=== PATIENT | female | born 1955 | race African-American/Black ===

== ENCOUNTER 2020-10-12 19:45 | Observation (INO) | payer OTHER ==
[2020-10-12 20:32] LABS: Absolute Lymphocytes (CBC) 1.1 K/uL (0.7-4.9); Basophils % 0.4 % (0-1.3); Lymphocytes % 14.1 % (15.3-44.8); RBC Red Blood Cell Count 4.96 M/uL (3.86-4.86)
[2020-10-12] MEDS ORDERED: NA CHLORIDE 0.9% 1,000 ML ONE ×2 (20:44→21:52)
[2020-10-12] MEDS ORDERED: ONDANSETRON 4 MG/2 ML VIAL ONE (20:44)
[2020-10-12 21:12] LABS: Bilirubin Direct 0.1 mg/dL (0-0.2); Bilirubin Total 0.5 mg/dL (0.2-1.0); Protein, Total 8.6 g/dL (6.4-8.2)
[2020-10-12 21:13] LABS: Potassium 6.2 mmol/L (3.5-5.1)
[2020-10-12 21:50] LABS: Magnesium 2.5 mg/dL (1.8-2.4); Phosphorus 8.3 mg/dL (2.5-4.9)
[2020-10-12] MEDS ORDERED: NA CHLORIDE 0.9% 100 ML ONE (21:52)
[2020-10-12] MEDS ORDERED: INSULIN -REGULAR HUMAN 50 UNIT/0.5 ML ML ONE (21:52)
[2020-10-12 22:01] LABS: Arterial Blood Carboxyhemoglob 1.2 % (0-1.5); Blood Gas Oxyhemoglobin 93.1 % (94-97); Blood O2 Saturation 95.8 % (92-98.5)
[2020-10-12 22:03] LABS: Urine Blood 1+ (NEG); Urine Glucose 2+ (NEG); Urine Protein NEGATIVE (NEG); Urine Specific Gravity 1.015 (1.005-1.030); Urine pH 5.5 (5.0-7.0)
--- NOTE | 2020-10-12 22:16 | ER ---
Nurse's Notes [facility] Name: Ana Laura Davis Age: 65 yrs Sex: Female : 1955 Arrival Date: 10/12/2020 Time: 19:48 Bed 13 Private MD: Donald Escobar B Diagnosis: Diabetes mellitus due to underlying condition with ketoacidosis Presentation: 10/12 19:52 Chief complaint: Patient states: Bllod sugar read HI just [employer]POR[employer]. Has been elavated for a ll1 few days. N/V began yesterday. Coronavirus screen: Client denies travel out of the [place] in the last 14 days. At this time, the client does not indicate any symptoms associated with coronavirus-19. Ebola Screen: Patient denies travel to an Ebola-affected area in the 21 days before illness onset. Initial Sepsis Screen: Does the patient meet any 2 criteria? HR > 90 bpm. No. Patient's initial sepsis screen is negative. Does the patient have a suspected source of infection? Yes: Other: high blood sugar. Risk Assessment: Do you want to hurt yourself or someone else? Patient reports no desire to harm self or others. Onset of symptoms was October 11, 2020. 19:52 Method Of Arrival: Ambulatory ll1 19:52 Acuity: [place] 2 ll1 Historical: - Allergies: 19:54 Latex, Natural Rubber; ll1 - PMHx: 19:54 High Cholesterol; Diabetes - IDDM; Hypertension; ll1 - PSHx: 19:54 None; ll1 - Immunization history:: Flu vaccine is up to date. - Social history:: Smoking status: Patient denies any tobacco usage or history of. Screenin:41 Abuse screen: Denies threats or abuse. Nutritional screening: No deficits noted. vg1 Tuberculosis screening: No symptoms or risk factors identified. Fall Risk No fall in past 12 months (0 pts). No secondary diagnosis (0 pts). IV access (20 points). Ambulatory Aid- None/Bed Rest/Nurse Assist (0 pts). Gait- Normal/Bed Rest/Wheelchair (0 pts) Mental Status- Oriented to own ability (0 pts). Total Peña Fall Scale indicates No Risk (0-24 pts). Assessment: 20:37 General: Appears in no apparent distress. comfortable, Behavior is calm, cooperative. vg1 Pain: Denies pain. Neuro: Level of Consciousness is awake, alert, obeys commands, Oriented to person, place, time, situation. Cardiovascular: Patient's skin is warm and dry. Respiratory: Airway is patent Respiratory effort is even, unlabored, Respiratory pattern is regular, symmetrical. GI: Abdomen is flat, Bowel sounds hypoactive in right upper quadrant, left upper quadrant, right lower quadrant and left lower quadrant Abd is soft and non tender X 4 quads. GI: Reports nausea, vomiting, Last BM was 10/09/20. : No signs and/or symptoms were reported regarding the genitourinary system. EENT: No signs and/or symptoms were reported regarding the EENT system. Derm: Skin is intact, is healthy with good turgor. Musculoskeletal: Circulation, motion, and sensation intact. 21:13 Reassessment: Received phone call from [place] in Lab, Critical results K 6.2, Bicarb vg1 11, Glucose 948. Provider Notified. 22:00 Reassessment: Patient appears in no apparent distress at this time. No changes from vg1 previously documented assessment. Patient and/or family updated on plan of care and expected duration. Pain level reassessed. Patient is alert, oriented x 3, equal unlabored respirations, skin warm/dry/pink. Vital Signs: 19:52 BP 135 / 65; Pulse 115; Resp 20; Temp 97.9; Pulse Ox 100% ; Weight 78.93 kg; Height 5 ll1 ft. 1 in. (154.94 cm); Pain 0/10; 20:41 BP 128 / 69; Pulse 100; Resp 20; Pulse Ox 100% on R/A; vg1 21:00 BP 134 / 64; Pulse 109; Resp 20; Pulse Ox 100% on R/A; vg1 22:00 BP 121 / 56; Pulse 105; Resp 24; Pulse Ox 100% on R/A; vg1 19:52 Body Mass Index 32.88 (78.93 kg, 154.94 cm) ll1 ED Course: 19:48 Patient arrived in ED. mr 19:48 Donald Escobar MD is Private Physician. mr 19:54 Triage completed. ll1 19:54 Arm band placed on Patient placed in an exam room, on a stretcher. ll1 20:08 Shabbir Gamble NP is PHCP. pm1 20:08 Norberto Gould MD is Attending Physician. pm1 20:20 Inserted saline lock: 22 gauge in right antecubital area, using aseptic technique. jb4 Blood collected. 20:32 Ania Ramos RN is Primary Nurse. vg1 20:42 Patient has correct armband on for positive identification. Placed in gown. Bed in low vg1 position. Call light in reach. Side rails up X2. 22:15 Leana Gregory MD is Hospitalizing Provider. pm1 23:30 Inserted saline lock: 20 gauge in left antecubital area, using aseptic technique. mg2 23:43 No provider procedures requiring assistance completed. Patient admitted, IV remains in mg2 place. 10/13 07:20 Primary Nurse role handed off by Ania Ramos RN bd 12:59 Naomi Valenzuela RN is Primary Nurse. zb Administered Medications: 10/12 20:34 Drug: NS 0.9% 1000 ml Route: IV; Rate: 1000 ml; Site: right antecubital; ll1 10/13 00:32 Follow up: Response: No adverse reaction; IV Status: Completed infusion; IV Intake: mg2 1000ml 10/12 20:34 Drug: Zofran (Ondansetron) 4 mg Route: IVP; Site: right antecubital; ll1 21:21 Follow up: Response: No adverse reaction vg1 21:58 Drug: Insulin Drip - (Insulin Regular Human 100 units, NS 0.9% 100 ml) {Co-Signature: vg1 lp1 (Ruthann Ruth RN).} Route: IV; Rate: calculated rate; Site: right antecubital; 23:58 Follow up: Rate change 4 units/hr; BGL-757 mg/dl mg2 21:59 Drug: NS 0.9% 1000 ml Route: IV; Rate: 1000 ml; Site: right antecubital; vg1 23:59 Follow up: Response: No adverse reaction; IV Status: Completed infusion; IV Intake: mg2 1000ml Intake: 23:59 IV: 1000ml; Total: 1000ml. mg2 10/13 00:32 IV: 1000ml; Total: 2000ml. mg2 Outcome: 10/12 22:15 Decision to Hospitalize by Provider. pm1 23:43 Admitted to ER Hold. Please see Chief Trunk for further documentation. mg2 23:43 Condition: stable 23:43 Demonstrated understanding of instructions. 10/13 18:59 Patient left the ED. jens Signatures: Whitney Petty Howard, Angela mr Tey, Shabbir, LIVESTOCK INSPECTOR LIVESTOCK INSPECTOR pm1 Ace Berkowitz, RN RN jb4 Wei Grant, RN RN mg2 Richard, Ania, RN RN vg1 Raffaele Evans RN RN ll1 Naomi Valenzuela RN RN zb Ruthann Ruth RN lp1
--- NOTE | 2020-10-12 22:16 | EDPHYS ---
Physician Documentation [facility] Name: Ana Laura Davis Age: 65 yrs Sex: Female : 1955 Arrival Date: 10/12/2020 Time: 19:48 Bed 13 Private MD: Donald Escobar B ED Physician Norberto Gould HPI: 10/12 20:16 This 65 yrs old Black Female presents to ER via Ambulatory with complaints of High pm1 Blood Sugar, Vomiting. 20:16 The patient or guardian reports that was potentially precipitated by change in pm1 medication. Patient changed to v-go 1 week ago. Onset: The symptoms/episode began/occurred 1 week(s) ago. Associated signs and symptoms: Pertinent positives: nausea, vomiting, onset yesterday. Current symptoms: In the emergency department the patient's symptoms have worsened. The patient has not experienced similar symptoms in the past. Historical: - Allergies: 19:54 Latex, Natural Rubber; ll1 - PMHx: 19:54 High Cholesterol; Diabetes - IDDM; Hypertension; ll1 - PSHx: 19:54 None; ll1 - Immunization history:: Flu vaccine is up to date. - Social history:: Smoking status: Patient denies any tobacco usage or history of. ROS: 20:16 Constitutional: Negative for fever, chills, and weight loss, Eyes: Negative for injury, pm1 pain, redness, and discharge, ENT: Negative for injury, pain, and discharge, Neck: Negative for injury, pain, and swelling, Cardiovascular: Negative for chest pain, palpitations, and edema, Respiratory: Negative for shortness of breath, cough, wheezing, and pleuritic chest pain. 20:16 Back: Negative for injury and pain, MS/Extremity: Negative for injury and deformity, Skin: Negative for injury, rash, and discoloration. 20:16 Neuro: Negative for headache, weakness, numbness, tingling, and seizure. 20:16 Abdomen/GI: Positive for nausea and vomiting, Negative for abdominal pain, diarrhea, constipation. 20:16 : Positive for increased urination, Negative for burning with urination. Exam: 20:16 Constitutional: This is a well developed, well nourished patient who is awake, alert, pm1 and in no acute distress. Head/Face: Normocephalic, atraumatic. 20:16 Back: No spinal tenderness. No costovertebral tenderness. Full range of motion. Skin: Warm, dry with normal turgor. Normal color with no rashes, no lesions, and no evidence of cellulitis. MS/ Extremity: Pulses equal, no cyanosis. Neurovascular intact. Full, normal range of motion. 20:16 Cardiovascular: Exam negative for acute changes, Rate: normal, Rhythm: regular, Pulses: no pulse deficits are appreciated, Edema: is not appreciated. 20:16 Respiratory: Exam negative for acute changes, respiratory distress, shortness of breath. 20:16 Abdomen/GI: Inspection: abdomen appears normal, Palpation: abdomen is soft and non-tender, in all quadrants. 20:16 Neuro: Exam negative for acute changes, Orientation: is normal, Mentation: is normal, Motor: is normal, moves all fours. Vital Signs: 19:52 BP 135 / 65; Pulse 115; Resp 20; Temp 97.9; Pulse Ox 100% ; Weight 78.93 kg; Height 5 ll1 ft. 1 in. (154.94 cm); Pain 0/10; 20:41 BP 128 / 69; Pulse 100; Resp 20; Pulse Ox 100% on R/A; vg1 21:00 BP 134 / 64; Pulse 109; Resp 20; Pulse Ox 100% on R/A; vg1 22:00 BP 121 / 56; Pulse 105; Resp 24; Pulse Ox 100% on R/A; vg1 19:52 Body Mass Index 32.88 (78.93 kg, 154.94 cm) ll1 MDM: 20:09 Patient medically screened. pm1 22:00 Data reviewed: vital signs. Data interpreted: Pulse oximetry: on room air is 100 %. pm1 Interpretation: normal. 22:05 Counseling: I had a detailed discussion with the patient and/or guardian regarding: the pm1 historical points, exam findings, and any diagnostic results supporting the discharge/admit diagnosis, lab results, the need for further work-up and treatment in the hospital. 22:10 Physician consultation: Leana Gregory MD was called at 22:10, was contacted at 22:10, pm1 regarding admission, patient's condition, and will see patient. 22:12 ED course: Patient used to be on Novolin N and R. Switched to v-go 1 week ago and pm1 reports that her sugars have been worse. Prior to change reports that her sugars have been good and sometimes bad. 10/12 20:13 Order name: Lipase pm1 10/12 20:13 Order name: Basic Metabolic Panel pm1 10/12 20:13 Order name: CBC with Diff pm1 10/12 20:13 Order name: Hepatic Function pm1 10/12 20:33 Order name: CBC with Automated Diff; Complete Time: 20:58 EDMS 10/12 21:13 Order name: Basic Metabolic Panel; Complete Time: 21:15 EDMS 10/12 21:13 Order name: Liver (Hepatic) Function; Complete Time: 21:15 EDMS 10/12 21:13 Order name: Lipase; Complete Time: 21:15 EDMS 10/12 21:21 Order name: ABG pm1 10/12 21:22 Order name: Ketone, Serum pm1 10/12 21:23 Order name: Magnesium pm1 10/12 21:23 Order name: Phosphorus pm1 10/12 21:27 Order name: Urine Dipstick--Ancillary (enter results) 2 10/12 21:38 Order name: COVID-19 : Document "Date of Symptom Onset" if Symptomatic. 2 10/12 21:43 Order name: Acetone Level; Complete Time: 22:04 EDMS 10/12 21:50 Order name: Phosphorus; Complete Time: 22:04 EDMS 10/12 21:50 Order name: Magnesium; Complete Time: 22:04 EDMS 10/12 21:56 Order name: CORONAVIRUS EDMS 10/12 22:02 Order name: ABG Arterial Blood Gas; Complete Time: 22:04 EDMS 10/12 22:03 Order name: Urine Dipstick-Ancillary; Complete Time: 22:04 EDMS 10/12 22:47 Order name: Glucose jb4 10/12 22:58 Order name: Glucose, Ancillary Testing; Complete Time: 22:59 EDMS 10/12 23:11 Order name: SARS-COV-2 RT PCR; Complete Time: 23:23 EDMS 10/12 23:38 Order name: Basic Metabolic Panel; Complete Time: 14:06 EDMS 10/12 23:38 Order name: Troponin I; Complete Time: 14:07 EDMS 10/13 00:45 Order name: Glucose mg2 10/13 00:56 Order name: Glucose, Ancillary Testing; Complete Time: 14:06 EDMS 10/13 01:24 Order name: Glucose Level; Complete Time: 14:06 EDMS 10/13 02:11 Order name: Glucose 4 10/13 02:22 Order name: Glucose, Ancillary Testing; Complete Time: 14:06 EDMS 10/12 20:13 Order name: IV Saline Lock; Complete Time: 20:27 pm1 10/12 20:13 Order name: Labs collected and sent; Complete Time: 20:26 pm10/12 20:13 Order name: Urine Dipstick-Ancillary (obtain specimen); Complete Time: 23:59 pm1 10/12 21:15 Order name: EKG; Complete Time: 21:16 pm10/12 21:15 Order name: EKG - Nurse/Tech; Complete Time: 22:00 pm10/12 21:24 Order name: NPO; Complete Time: 21:32 pm1 10/13 03:15 Order name: Glucose Level; Complete Time: 14:06 EDMS 10/13 03:17 Order name: Glucose 4 10/13 03:26 Order name: Glucose, Ancillary Testing; Complete Time: 14:06 EDMS 10/13 04:06 Order name: Glucose Level; Complete Time: 14:07 EDMS 10/13 04:06 Order name: Troponin I; Complete Time: 14:07 EDMS 10/13 04:26 Order name: Glucose, Ancillary Testing; Complete Time: 14:07 EDMS 10/13 04:40 Order name: CBC with Automated Diff; Complete Time: 14:07 EDMS 10/13 05:03 Order name: Comprehensive Metabolic Panel; Complete Time: 14:07 EDMS 10/13 05:20 Order name: Glucose, Ancillary Testing; Complete Time: 14:07 EDMS 10/13 06:18 Order name: Glucose, Ancillary Testing; Complete Time: 14:07 EDMS 10/13 07:18 Order name: Glucose, Ancillary Testing; Complete Time: 14:07 EDMS 10/13 08:10 Order name: Glucose, Ancillary Testing; Complete Time: 14:07 EDMS 10/13 09:15 Order name: Glucose, Ancillary Testing; Complete Time: 14:07 EDMS 10/13 11:44 Order name: Glucose, Ancillary Testing; Complete Time: 14:07 EDMS 10/13 12:33 Order name: Basic Metabolic Panel; Complete Time: 14:07 EDMS 10/13 16:32 Order name: RAD EDMS 10/13 17:51 Order name: Glucose, Ancillary Testing EDMS Administered Medications: 20:34 Drug: NS 0.9% 1000 ml Route: IV; Rate: 1000 ml; Site: right antecubital; ll1 10/13 00:32 Follow up: Response: No adverse reaction; IV Status: Completed infusion; IV Intake: mg2 1000ml 10/12 20:34 Drug: Zofran (Ondansetron) 4 mg Route: IVP; Site: right antecubital; ll1 21:21 Follow up: Response: No adverse reaction vg1 21:58 Drug: Insulin Drip - (Insulin Regular Human 100 units, NS 0.9% 100 ml) {Co-Signature: iliana1 lp1 (Ruthann Ruth RN).} Route: IV; Rate: calculated rate; Site: right antecubital; 23:58 Follow up: Rate change 4 units/hr; BGL-757 mg/dl mg2 21:59 Drug: NS 0.9% 1000 ml Route: IV; Rate: 1000 ml; Site: right antecubital; vg1 23:59 Follow up: Response: No adverse reaction; IV Status: Completed infusion; IV Intake: mg2 1000ml Disposition: 10/12/20 22:15 Hospitalization ordered by Leana Gregory for Inpatient Admission. Preliminary diagnosis is Diabetes mellitus due to underlying condition with ketoacidosis. - Bed requested for [facility] ER HOLD. - Status is Inpatient Admission. zb - Condition is Stable. - Problem is new. - Symptoms have improved. Addendum: 10/18/2020 04:15 Co-signature as Attending Physician, Norberto Gould MD. m h7 Signatures: Dispatcher [employer] EDKY Ruthann Ruth, RN RN lp1 Shabbir Gabmle, MANUFACTURING TEAM LEADER MANUFACTURING TEAM LEADER pm1 Ania Ramos RN RN vg1 Raffaele Evans RN RN ll1 Norberto Gould MD MD 7 Naomi Valenzuela RN RN zb Gardose, Michele RN mg2 Ruthann Ruth RN lp1 Corrections: (The following items were deleted from the chart) 10/12 23:26 22:15 Hospitalization Ordered by Leana Gregory MD for Inpatient Admission. Preliminary lp1 diagnosis is Diabetes mellitus due to underlying condition with ketoacidosis. Bed requested for Intensive Care Unit. Status is Inpatient Admission. Condition is Stable. Problem is new. Symptoms have improved. pm1 10/13 18:59 10/12 23:26 10/12/2020 22:15 Hospitalization Ordered by Leana Gregory MD for Inpatient zb Admission. Preliminary diagnosis is Diabetes mellitus due to underlying condition with ketoacidosis. Bed requested for [facility] ER HOLD. Status is Inpatient Admission. Condition is Stable. Problem is new. Symptoms have improved. lp1
[2020-10-12] MEDS ORDERED: ACETAMINOPHEN 500 MG TAB PO PRN (22:40)
[2020-10-12] MEDS ORDERED: ALBUTEROL 2.5 MG/3 ML NEB SOL NEB PRN (22:40)
[2020-10-12] MEDS ORDERED: MORPHINE 2 MG/ML SYR IV PRN (22:40)
[2020-10-12] MEDS ORDERED: ONDANSETRON 4 MG/2 ML VIAL IV PRN (22:40)
[2020-10-12] MEDS ORDERED: D50W 25 GM/50 ML SYRINGE IV PRN (22:42)
[2020-10-12] MEDS ORDERED: GLUCAGON 1 MG/VIAL IM PRN (22:42)
[2020-10-12] MEDS ORDERED: CALCIUM GLUC 10% INJ 9.3 MEQ in NA CHLORIDE 0.9% 100 ML IV ONE (22:45)
[2020-10-12] MEDS ORDERED: INSULIN -REGULAR HUMAN 100 UNIT in NA CHLORIDE 0.9% 100 ML IV SCH (22:45)
[2020-10-12] MEDS ORDERED: HYDRALAZINE HCL 20 MG/ML VIAL IV PRN (22:47)
[2020-10-12] MEDS ORDERED: Oxycodone HCl/Acetaminophen 1 TAB TAB PO PRN (22:47)
--- NOTE | 2020-10-12 22:54 | P.HP ---
Certification for Inpatient Patient admitted to: Inpatient With expected LOS: >2 Midnights Patient will require the following post-hospital care: None Practitioner: I am a practitioner with admitting privileges, knowledge of patient current condition, hospital course, and medical plan of care. Services: Services provided to patient in accordance with Admission requirements found in Title 42 Section 412.3 of the Code of Federal Regulations Patient History Date of Service: 10/12/20 Reason for admission: Nausea and abdominal pain History of Present Illness: 65-year-old female with past medical history of hypertension, diabetes mellitus type 1 since over 15 years, previously on a Novolin insulin, status post change to Novolin N and R at [facility] 2 weeks ago and aching stage II vehicle insulin pump-3 pushes t.i.d. by her helicopter specialist last week. She is on show or can remember helicopter specialist name at this time. She states since the recent change to the insulin pump she has be having elevated glucose at home with readings ab 0 for high yes margin of a glucometer. She developed nausea abdominal cramps with increasing weakness poorly Dc a poly urea since the last 3 days. She presented to the ED because of worsening symptoms. In the ED she was noted with glucose of 100 with BMP showing glucose of 948 and anion gap of greater than 25. She also have hyperkalemia 6.2 and creatinine elevation to 3.1. She denies any history of kidney injury in the past. She denies any chest pain or shortness of breath. She denies any cough, dysuria. There is no documented fever. She has been admitted for DKA Allergies latex Allergy (Intermediate, Verified 01/16/13 12:38) unknown Home medications list reviewed: No Home Medications: Aspirin Chewable [Aspirin Chewable*] 81 mg PO DAILY 01/14/13 Calcium Carbonate/Vitamin D3 [Calcium 600 + Vit D Tablet] 1 each PO DAILY 01/14/13 Cholecalciferol (Vitamin D3) [Vitamin D3] 1,000 unit PO DAILY 01/14/13 Metformin HCl [Glucophage] 1,000 mg PO BID 01/14/13 Potassium Gluconate [Potassium] 550 mg PO DAILY 01/14/13 Pravastatin Sodium [Pravachol] 40 mg PO DAILY 01/14/13 Insulin Glargine Human [Lantus*] 50 unit SQ BEDTIME #1 ml 01/17/13 Insulin Regular, Human [Humulin R] 0 unit SQ PRN PRN #1 ml 01/17/13 Insulin Regular, Human [Humulin R] 10 unit SQ TIDWM #1 ml 01/17/13 Valsartan/Hydrochlorothiazide [Diovan Hct 320-12.5 mg Tab] 1 tab PO DAILY #30 tablet 01/17/13 - Past Medical/Surgical History Has patient received pneumonia vaccine in the past: No Diabetic: Yes -: Hypertension, diabetes mellitus, hyperlipidemia Past Surgical History: Reviewed- Non-Contributory - Family History Family History: Reviewed- Non-Contributory - Social History Smoking Status: Never smoker Alcohol use: No CD- Drugs: No Caffeine use: Yes Place of Residence: Home Review of Systems General: Weakness Eyes: Unremarkable ENT: Unremarkable Respiratory: Unremarkable Cardiovascular: Light Headedness Gastrointestinal: Nausea, Vomiting Genitourinary: Unremarkable Musculoskeletal: Unremarkable Integumentary: Unremarkable Neurological: Weakness, Incoordination Physical Examination - Physical Exam General: Alert, In no apparent distress, Oriented x3, Other (slow mentation) HEENT: Atraumatic, Normocephalic, PERRLA, Other (dry oral mucosa) Neck: Supple, 2+ carotid pulse no bruit, JVD not distended Respiratory: Clear to auscultation bilaterally, Normal air movement Cardiovascular: No edema, Regular rate/rhythm, Normal S1 S2 Capillary refill: <2 Seconds Gastrointestinal: Normal bowel sounds, Soft and benign, Non-distended Musculoskeletal: No clubbing, No swelling Integumentary: No rashes, No breakdown Neurological: Normal gait, Normal speech, Normal strength at 5/5 x4 extr, Cranial nerves 3-12 intact Other Physical/Emotional Findings: rLQ insulin pump with subcutaneous attachment - Studies Laboratory Data (last 24 hrs) 10/12/20 20:20: Phosphorus 8.3 H, Magnesium 2.5 H 10/12/20 20:20: WBC 8.10, Hgb 12.8, Hct 41.0, Plt Count 257 10/12/20 20:20: Sodium 128 L, Potassium 6.2 H*, BUN 75 H, Creatinine 3.13 H, Glucose 948 H*, Total Bilirubin 0.5, AST 17, ALT 35, Alkaline Phosphatase 88, Lipase 29 L Assessment and Plan - Problems (Diagnosis) (1) DKA, type 1 Current Visit: Yes Status: Acute (2) Hyponatremia Current Visit: Yes Status: Acute (3) Hyperkalemia Current Visit: Yes Status: Acute (4) ARF (acute renal failure) Current Visit: Yes Status: Acute (5) Diabetes Current Visit: Yes Status: Acute (6) HTN (hypertension) Current Visit: Yes Status: Acute - Plan # DKA type 1-with large anion gap of greater than 27 Start insulin drip with aggressive hydration with normal saline. His stay initiate DKA protocol Admit to ICU Follow BMP q.4 hr Hold insulin pump for now , may need endocrinology re-evaluation while inpatient in a.m.\ # Hyperkalemia-due to DKA, dose calcium gluconate now -Follow up repeat BMP -expected to improve with insulin and normal saline #Hyponatremia at that due to pseudohyponatremia, follow with glucose control #Hypertension-controlled, IV hydralazine p.r.n. Hold Diovan for now #DVT prophylaxis-subcutaneous heparin #Advanced directive-full code #Disposition possible hospital stay for more than 2 days Discharge Plan: Home Plan to discharge in: Greater than 2 days - Advance Directives Does patient have a Living Will: No Does patient have a Durable POA for Healthcare: No Time Spent Managing Pts Care (In Minutes): 70
[2020-10-12] MEDS: NA CHLORIDE 0.9% 1,000 ML IV SCH (23:00)
[2020-10-12] MEDS ORDERED: BENZONATATE 100 MG CAP PO PRN (23:15)
[2020-10-12 23:37] LABS: BUN Blood Urea Nitrogen 74 mg/dL (7-18); Bicarbonate 12 mmol/L (21-32); Glucose Level 757 mg/dL (74-106); Potassium 5.1 mmol/L (3.5-5.1); Sodium Level 137 mmol/L (136-145); Troponin I < 0.02 ng/mL (0.0-0.045)
[2020-10-13 00:12] VITALS: BMI 32.8
[2020-10-13] MEDS ORDERED: CALCIUM GLUCONATE 1 GM IVPB 1 GM/50 ML BAG IV ONE ×2 (00:46→01:15)
[2020-10-13] MEDS ORDERED: NA CHLORIDE 0.9% 1,000 ML ONE ×2 (00:46→08:56)
[2020-10-13] MEDS ORDERED: BENZONATATE 100 MG CAP PO PRN (00:48)
[2020-10-13 04:04] LABS: Troponin I 0.05 ng/mL (0.0-0.045)
[2020-10-13 04:35] LABS: Absolute Lymphocytes (CBC) 1.5 K/uL (0.7-4.9); Basophils % 0.3 % (0-1.3); Hematocrit 34.4 % (36.0-45.0); Lymphocytes % 17.2 % (15.3-44.8); MPV 9.5 fL (7.6-11.3); RBC Red Blood Cell Count 4.42 M/uL (3.86-4.86)
[2020-10-13 05:02] LABS: Albumin 3.3 g/dL (3.4-5.0); Bilirubin Total 0.3 mg/dL (0.2-1.0); Potassium 4.4 mmol/L (3.5-5.1); Protein, Total 6.9 g/dL (6.4-8.2)
[2020-10-13] MEDS ORDERED: GLUCAGON 1 MG/VIAL IM PRN (08:19)
[2020-10-13] MEDS: NA CHLORIDE 0.9% 1,000 ML IV SCH (08:48)
[2020-10-13] MEDS ORDERED: ZINC SULFATE 220 MG CAP ONE (08:55)
[2020-10-13] MEDS ORDERED: HEPARIN 5000 UNIT/ML 1 ML VIAL ONE (08:55)
[2020-10-13] MEDS ORDERED: FAMOTIDINE 20 MG TAB ONE (08:56)
[2020-10-13] MEDS ORDERED: ASPIRIN EC 81 MG TAB PO ONE (08:56)
[2020-10-13] MEDS ORDERED: INFLUENZA VACCINE (for 3y+) 0.5 ML DOSE IMVAC ONE (09:00)
[2020-10-13] MEDS ORDERED: PNEUMOCOCCAL VACCINE 0.5 ML IMVAC ONE (09:00)
[2020-10-13] MEDS ORDERED: FAMOTIDINE 20 MG TAB PO SCH (09:00)
[2020-10-13] MEDS ORDERED: ZINC SULFATE 220 MG CAP PO SCH (09:00)
[2020-10-13] MEDS ORDERED: HEPARIN 5000 UNIT/ML 1 ML VIAL SQ SCH (09:00)
[2020-10-13] MEDS ORDERED: IVERMECTIN 3 MG TABLET PO SCH (09:00)
[2020-10-13] MEDS ORDERED: NA CHLORIDE 0.9% 1,000 ML IV SCH (09:00)
[2020-10-13] MEDS ORDERED: ENOXAPARIN 40 MG/0.4 ML SQ SCH (09:00)
[2020-10-13] MEDS ORDERED: ASPIRIN 81 MG CHEWABLE TABLET PO SCH (09:00)
[2020-10-13] MEDS ORDERED: INSULIN -REGULAR HUMAN 50 UNIT/0.5 ML ML SQ SCH (11:30)
[2020-10-13 11:38] VITALS: BP 115/70; TEMP 98.5
[2020-10-13 12:33] LABS: Potassium 4.7 mmol/L (3.5-5.1)
--- NOTE | 2020-10-13 13:13 | EKG ---
Test Date: 2020-10-12 Test Time: 21:52:45 Foot Piece Assembler: ARCADIO MEASUREMENT RESULTS: Intervals: Rate: 108 UT: 142 QRSD: 94 QT: 356 QTc: 477 [place]: P: 66 UT: 142 QRS: 27 T: 38 INTERPRETIVE STATEMENTS: Sinus tachycardia Otherwise normal ECG Compared to ECG 01/14/2013 15:33:31 Sinus rhythm no longer present Atrial abnormality no longer present Prolonged QT interval no longer present Electronically Signed On 10-13-20 13:12:26 WEBSITE PROJECT MANAGER by Bienvenido Munoz
[2020-10-13] MEDS ORDERED: INSULIN -REGULAR HUMAN 50 UNIT/0.5 ML ML ONE (14:20)
--- NOTE | 2020-10-13 15:11 | P.DS ---
Admission Date: 10/12/20 Discharge Date: 10/13/20 Disposition: ROUTINE DISCHARGE Discharge Condition: FAIR Reason for Admission: Nausea and abdominal pain - Problems (1) COVID-19 virus infection Current Visit: Yes Status: Acute (2) ARF (acute renal failure) Current Visit: Yes Status: Acute (3) DKA, type 1 Current Visit: Yes Status: Acute Brief History of Present Illness: 65-year-old woman with a history of type 1 diabetes, initially on Novolin N and Novolin R, recently switched to insulin pump presented to the emergency department with a complaint of progressive nausea and vomiting and generalized weakness. Patient stated her blood sugar has been running high since she was changed to insulin pump. Her blood sugar was 948 on arrival. Patient was in DKA with high anion gap, and metabolic acidosis. Patient also tested positive for COVID 19. DKA protocol initiated in the ED and patient admitted for further management. Hospital Course: Patient admitted and DKA protocol continued with insulin drip, and aggressive IV hydration. Her UA did not suggest the presence of UTI. The DKA resolved within 24 hrs. It is possible her insulin pump is not working well or not delivering insulin. Recommended patient discontinue the insulin pump and manage blood sugar with Lantus insulin and insulin sliding scale as before. Patient has clinically improved. She has tolerated diet with no vomiting. She is discharged to follow with the android framework developer for readjustment in her insulin regimen. Vital Signs/Physical Exam: Temp Pulse Resp BP Pulse Ox 98.5 F 108 H 18 115/70 98 10/13/20 11:35 10/13/20 11:35 10/13/20 11:35 10/13/20 11:35 10/13/20 11:35 General: Alert, In no apparent distress, Oriented x3 HEENT: Mucous membr. moist/pink Neck: JVD not distended Respiratory: Clear to auscultation bilaterally, Normal air movement Cardiovascular: No edema, Regular rate/rhythm, Normal S1 S2 Gastrointestinal: Soft and benign, Non-distended, No tenderness Musculoskeletal: No swelling, No tenderness Integumentary: No rashes Neurological: Normal strength at 5/5 x4 extr Other Physical/Emotional Findings: rLQ insulin pump with subcutaneous attachment Laboratory Data at Discharge: WBC 8.70 K/uL (4.3-10.9) 10/13/20 04:15 Hgb 11.6 g/dL (12.0-15.0) L 10/13/20 04:15 Hct 34.4 % (36.0-45.0) L D 10/13/20 04:15 Plt Count 221 K/uL (152-406) 10/13/20 04:15 Sodium 146 mmol/L (136-145) H 10/13/20 12:08 Potassium 4.7 mmol/L (3.5-5.1) 10/13/20 12:08 BUN 58 mg/dL (7-18) H 10/13/20 12:08 Creatinine 1.68 mg/dL (0.55-1.3) H 10/13/20 12:08 Glucose 200 mg/dL (74-106) H 10/13/20 12:08 Phosphorus 8.3 mg/dL (2.5-4.9) H 10/12/20 20:20 Magnesium 2.5 mg/dL (1.8-2.4) H 10/12/20 20:20 Total Bilirubin 0.3 mg/dL (0.2-1.0) 10/13/20 04:15 AST 21 U/L (15-37) 10/13/20 04:15 ALT 29 U/L (12-78) 10/13/20 04:15 Alkaline Phosphatase 66 U/L (45-117) 10/13/20 04:15 Troponin I 0.05 ng/mL (0.0-0.045) H 10/13/20 03:20 Lipase 29 U/L (73-393) L 10/12/20 20:20 Home Medications: Aspirin Chewable [Aspirin Chewable*] 81 mg PO DAILY 01/14/13 Calcium Carbonate/Vitamin D3 [Calcium 600 + Vit D Tablet] 1 each PO DAILY 01/14/13 Cholecalciferol (Vitamin D3) [Vitamin D3] 1,000 unit PO DAILY 01/14/13 Metformin HCl [Glucophage*] 1,000 mg PO BID 01/14/13 Potassium Gluconate [Potassium] 550 mg PO DAILY 01/14/13 Pravastatin Sodium [Pravachol] 40 mg PO DAILY 01/14/13 Insulin Glargine Human [Lantus*] 50 unit SQ BEDTIME #1 ml 01/17/13 Insulin Regular, Human [Humulin R] 0 unit SQ PRN PRN #1 ml 01/17/13 Insulin Regular, Human [Humulin R] 10 unit SQ TIDWM #1 ml 01/17/13 Valsartan/Hydrochlorothiazide [Diovan Hct 320-12.5 mg Tab] 1 tab PO DAILY #30 tablet 01/17/13 Ascorbic Acid [Vitamin C with Shanna Hips] 2,000 mg PO BID #240 tab.chew 10/13/20 Benzonatate [Tessalon Perle*] 200 mg PO TID PRN #90 cap 10/13/20 Cholecalciferol (Vitamin D3) [Vitamin D3] 4,000 unit PO DAILY #60 capsule 10/13/20 Famotidine [Pepcid*] 20 mg PO DAILY #30 tab 10/13/20 Zinc Sulfate [Zinc Sulfate*] 220 mg PO DAILY #30 cap 10/13/20 New Medications: Famotidine [Pepcid*] 20 mg PO DAILY #30 tab Benzonatate [Tessalon Perle*] 200 mg PO TID PRN #90 cap PRN Reason: Cough Ascorbic Acid [Vitamin C with Shanna Hips] 2,000 mg PO BID #240 tab.chew Cholecalciferol (Vitamin D3) [Vitamin D3] 4,000 unit PO DAILY #60 capsule Zinc Sulfate [Zinc Sulfate*] 220 mg PO DAILY #30 cap Diet: ADA Activity: Ad shanta Followup: Donald Escobar MD [Primary Care Provider] - 1 Week
[2020-10-13] MEDS ORDERED: D50W 25 GM/50 ML VIAL IV PRN (16:00)
--- NOTE | 2020-10-13 16:31 | RAD REPORT ---
EXAM DESCRIPTION: RAD - Chest Single View - 10/13/2020 4:26 pm CLINICAL HISTORY: COVID 19 infection. Assess for Pneumonia Chest pain. COMPARISON: No comparisons FINDINGS: Portable technique limits examination quality. The lungs are grossly clear. The heart is normal in size. No displaced fractures. IMPRESSION: No acute intrathoracic process suspected.
[2020-10-13 19:04] VITALS: O2SAT 100
== END 2020-10-13 18:59 | disposition home or self-care (01) ==
LOC: ER 19:45 → ERHOLD 22:40 → INTOOBSV 22:40 → ERHOLD 10-13 06:42
PROVIDERS: ADMIT Internal Medicine; ATTEND Internal Medicine
DX: E10.10 Type 1 diabetes mellitus with ketoacidosis without coma (principal); U07.1 COVID-19; N17.9 Acute kidney failure, unspecified; E87.1 Hypo-osmolality and hyponatremia; E87.5 Hyperkalemia; I10 Essential (primary) hypertension; E78.5 Hyperlipidemia, unspecified; Z96.41 Presence of insulin pump (external) (internal); Z79.82 Long term (current) use of aspirin; Z91.040 Latex allergy status
CPT/HCPCS: 96361; 93005; 85025 ×2; 80048 ×3; 36415; 82010; 83735; 82947 ×15; 84100; 80076; 81003; 84484 ×2; 83690; 80053; 71045; 82805; 96375; 96374; 99285; U0003; J1644; J0610 ×2; J7030 ×4; J2405

== ENCOUNTER 2020-10-16 14:42 | Inpatient (IN) | payer OTHER ==
--- NOTE | 2020-10-16 15:43 | RAD REPORT ---
EXAM DESCRIPTION: RAD - Chest Single View - 10/16/2020 3:30 pm CLINICAL HISTORY: weakness Chest pain. COMPARISON: Chest Single View dated 10/13/2020 FINDINGS: Portable technique limits examination quality. Left retrocardiac opacity is noted, which probably is infiltrate/pneumonia. This appears more conspic uous than on the comparative radiograph. The heart is normal in size. No displaced fractures. IMPRESSION: Left retrocardiac infiltrate/ pneumonia suspected.
[2020-10-16] MEDS ORDERED: NA CHLORIDE 0.9% 500 ML ONE ×3 (15:53→20:27)
[2020-10-16 16:19] LABS: Absolute Lymphocytes (CBC) 0.8 K/uL (0.7-4.9); Basophils % 0.3 % (0-1.3); Hematocrit 45.5 % (36.0-45.0); Lymphocytes % 11.1 % (15.3-44.8); MPV 9.8 fL (7.6-11.3); RBC Red Blood Cell Count 5.72 M/uL (3.86-4.86)
[2020-10-16 16:28] LABS: Protime INR 0.85
[2020-10-16 16:51] LABS: Albumin 3.5 g/dL (3.4-5.0); Bilirubin Direct 0.2 mg/dL (0-0.2); Bilirubin Total 0.5 mg/dL (0.2-1.0); Magnesium 2.5 mg/dL (1.8-2.4); Potassium 4.2 mmol/L (3.5-5.1); Protein, Total 8.3 g/dL (6.4-8.2); Troponin (Emerg Dept Use Only) 0.06 ng/mL (0.0-0.045)
--- NOTE | 2020-10-16 17:10 | RAD REPORT ---
EXAM DESCRIPTION: CT - Head Brain Wo Cont - 10/16/2020 4:59 pm CLINICAL HISTORY: Dizziness;Weakness Headache, drowsiness COMPARISON: No comparisons TECHNIQUE: All CT scans are performed using dose optimization technique as appropriate and may inclu de automated exposure control or mA/KV adjustment according to patient size. FINDINGS: No intracranial hemorrhage, hydrocephalus or extra-axial fluid collection.Mild generalized brain atrophy is present with mild periventricular and deep white matter chronic microvascular ische sindhu changes.No areas of brain edema or evidence of midline shift. The paranasal sinuses and mastoids are clear. The calvarium is intact. IMPRESSION: No acute intracranial abnormality.
[2020-10-16] MEDS ORDERED: INSULIN -REGULAR HUMAN 50 UNIT/0.5 ML ML ONE ×2 (17:48→21:48)
--- NOTE | 2020-10-16 18:22 | EDPHYS ---
Physician Documentation [facility] Name: Ana Laura Davis Age: 65 yrs Sex: Female : 1955 Arrival Date: 10/16/2020 Time: 14:44 Bed 26 Private MD: ED Physician Abdiel Eden HPI: 10/16 15:10 This 65 yrs old Black Female presents to ER via Ambulatory with complaints of High cp Blood Sugar, Dizziness, Weakness. 15:10 The patient or guardian reports hyperglycemia. cp 15:10 Onset: The symptoms/episode began/occurred 4 day(s) ago. Associated signs and symptoms: cp Pertinent positives: dizziness, general weakness. Current symptoms: In the emergency department the patient's symptoms are unchanged from the initial presentation, despite home interventions. 15:10 Patient reports testing positive for COVID-19 last week. cp Historical: - Allergies: 14:54 Latex, Natural Rubber; ll1 - PMHx: 14:54 Diabetes - IDDM; High Cholesterol; Hypertension; ll1 - PSHx: 14:54 None; ll1 - Immunization history:: Flu vaccine is up to date. - Social history:: Smoking status: Patient denies any tobacco usage or history of. ROS: 15:15 Constitutional: Positive for poor PO intake, Negative for body aches, chills, fever. cp 15:15 Eyes: Negative for injury, pain, redness, and discharge. cp 15:15 ENT: Negative for ear pain, sore throat, difficulty swallowing, difficulty handling secretions. 15:15 Cardiovascular: Negative for chest pain, edema, palpitations. 15:15 Respiratory: Negative for cough, shortness of breath, wheezing. 15:15 Abdomen/GI: Negative for vomiting, diarrhea, constipation. 15:15 : Negative for urinary symptoms. 15:15 Neuro: Positive for dizziness, weakness, Negative for altered mental status, headache, syncope. 15:15 All other systems are negative. Exam: 15:20 Constitutional: The patient appears in no acute distress, alert, awake, cp non-diaphoretic, non-toxic, well developed, well nourished. 15:20 Head/Face: Normocephalic, atraumatic. cp 15:20 Eyes: Periorbital structures: appear normal, Conjunctiva: normal, no exudate, no injection, Sclera: no appreciated abnormality, Lids and lashes: appear normal, bilaterally. 15:20 ENT: External ear(s): are unremarkable, Nose: is normal, Mouth: Lips: moist, Oral mucosa: moist, Posterior pharynx: Airway: no evidence of obstruction, patent, erythema, is not appreciated, exudate, is not appreciated. 15:20 Neck: ROM/movement: is normal, is supple, without pain, no range of motions limitations, no meningismus. 15:20 Chest/axilla: Inspection: normal, Palpation: is normal, no crepitus, no tenderness. 15:20 Cardiovascular: Rate: tachycardic, Rhythm: regular, Edema: is not appreciated, JVD: is not appreciated. 15:20 Respiratory: the patient does not display signs of respiratory distress, Respirations: normal, no use of accessory muscles, no retractions, labored breathing, is not present, Breath sounds: are clear throughout, no decreased breath sounds, no stridor, no wheezing. 15:20 Abdomen/GI: Inspection: abdomen appears normal, Bowel sounds: active, all quadrants, Palpation: abdomen is soft and non-tender, in all quadrants. 15:20 Skin: cellulitis, is not appreciated, no rash present. 15:20 Neuro: Orientation: to person, place \T\ time. Mentation: is normal, Cerebellar function: is grossly normal, Motor: moves all fours, strength is normal, Sensation: is normal. Vital Signs: 14:51 BP 106 / 70; Pulse 122; Resp 18; Temp 98.3; Pulse Ox 99% ; Weight 69.4 kg; Height 5 ft. ll1 1 in. (154.94 cm); Pain 0/10; 16:45 BP 106 / 72; Pulse 121; Resp 16; Pulse Ox 99% on R/A; ph 17:46 BP 104 / 68; Pulse 119; Resp 20; Pulse Ox 99% on R/A; ph 20:00 BP 115 / 68; Pulse 113; Resp 18; Pulse Ox 97% on R/A; wh 21:30 BP 104 / 57; Pulse 115; Resp 18; Pulse Ox 94% on R/A; wh 23:00 BP 127 / 60; Pulse 112; Resp 18; Pulse Ox 95% on R/A; wh 14:51 Body Mass Index 28.91 (69.40 kg, 154.94 cm) ll1 MDM: 15:04 Patient medically screened. matheus 18:10 Data reviewed: vital signs, nurses notes, lab test result(s), EKG, radiologic studies, cp CT scan, plain films. 18:10 Test interpretation: by ED physician or midlevel provider: ECG, plain radiologic cp studies. Counseling: I had a detailed discussion with the patient and/or guardian regarding: the historical points, exam findings, and any diagnostic results supporting the discharge/admit diagnosis, lab results, radiology results, the need for further work-up and treatment in the hospital. Response to treatment: the patient's symptoms have mildly improved after treatment, and as a result, I will admit patient. 18:20 Physician consultation: Ray GAMBINO was called at 18:15, was contacted at 18:15, cp regarding admission, to the telemetry unit. patient's condition. 10/16 15:14 Order name: Basic Metabolic Panel cp 10/16 15:14 Order name: CBC with Diff cp 10/16 15:14 Order name: LFT's; Complete Time: 16:55 cp 10/16 15:14 Order name: Magnesium; Complete Time: 16:55 cp 10/16 15:15 Order name: NT PRO-BNP; Complete Time: 16:55 cp 10/16 15:15 Order name: PT-INR; Complete Time: 16:42 cp 10/16 15:15 Order name: Troponin (emerg Dept Use Only); Complete Time: 16:55 cp 10/16 15:15 Order name: Urine Microscopic Only 10/16 15:15 Order name: Basic Metabolic Panel; Complete Time: 16:55 EDMS 10/16 15:15 Order name: CBC with Automated Diff; Complete Time: 16:42 EDMS 10/16 16:42 Interpretation: Normal except: RBC 5.72; HGB 14.6; HCT 45.5; MCV 79.7; MCH 25.5; PLT cp 167; ALO% 83.6; LYM% 11.1. 10/16 16:20 Order name: Glucose, Ancillary Testing; Complete Time: 16:42 EDMS 10/16 17:58 Order name: Procalcitonin; Complete Time: 20:06 cp 10/16 17:58 Order name: Lactate; Complete Time: 20:06 cp 10/16 17:58 Order name: Blood Culture Adult (2) 10/16 15:15 Order name: XRAY Chest (1 view); Complete Time: 15:44 10/16 16:45 Order name: CT Head Brain wo Cont; Complete Time: 17:12 10/16 17:12 Interpretation: Report reviewed. 10/16 18:20 Order name: CRP 10/16 18:20 Order name: C-Reactive Protein; Complete Time: 20:06 [facility] 10/16 19:28 Order name: Urine Dipstick--Ancillary (enter results) [facility] 10/16 19:34 Order name: Renal Ultrasound-Complete [facility] 10/16 19:34 Order name: Renal Ultrasound-Complete [facility] 10/16 21:33 Order name: Glucose, Ancillary Testing [facility] 10/16 23:34 Order name: Troponin I [facility] 10/16 23:36 Order name: Lactate Sepsis 2 HR Follow-up [facility] 10/16 14:58 Order name: Accucheck Blood Glucose; Complete Time: 18:56 10/16 15:15 Order name: EKG; Complete Time: 15:16 10/16 15:15 Order name: Cardiac monitoring; Complete Time: 17:47 10/16 15:15 Order name: EKG - Nurse/Tech; Complete Time: 17:47 10/16 15:15 Order name: IV Saline Lock; Complete Time: 17:16 10/16 15:15 Order name: Labs collected and sent; Complete Time: 17:16 10/16 15:15 Order name: O2 Per Protocol; Complete Time: 17:16 10/16 15:15 Order name: O2 Sat Monitoring; Complete Time: 17:16 10/16 15:15 Order name: Urine Dipstick-Ancillary (obtain specimen); Complete Time: 17:25 cp Administered Medications: 17:00 Not Given (Physician Discretion): NS 0.9% 500 ml IV at bolus once cp 17:00 Drug: NS 0.9% 1000 ml Route: IV; Rate: 1000 ml/hr; Site: left antecubital; ph 23:24 Follow up: Response: No adverse reaction; IV Status: Completed infusion 17:45 Drug: Insulin Regular Human 10 units {Co-Signature: [id number] (Cordelia Tolliver RN).} Route: ph IVP; Site: left antecubital; 23:24 Follow up: Response: No adverse reaction; Blood sugar is lowered 18:50 Drug: Zofran (Ondansetron) 4 mg Route: IVP; Site: left antecubital; dm14 19:23 Follow up: Response: No adverse reaction ph 20:01 Drug: Rocephin 1 grams Route: IV; Rate: calculated rate; Site: left antecubital; 23:24 Follow up: Response: No adverse reaction; IV Status: Completed infusion 20:10 Drug: NS 0.9% 500 ml Route: IV; Rate: bolus; Site: left antecubital; 23:23 Follow up: IV Status: Infusion continued upon admission 23:23 Follow up: Response: No adverse reaction; IV Status: Completed infusion 20:12 Drug: Zithromax 500 mg Route: IVPB; Infused Over: 1 hrs; Site: left antecubital; 23:24 Follow up: Response: No adverse reaction; IV Status: Completed infusion 20:57 Drug: Zofran (Ondansetron) 4 mg Route: IVP; Site: left antecubital; 23:24 Follow up: Response: No adverse reaction; Nausea is decreased Disposition: 10/17 05:37 Co-signature as Attending Physician, Abdiel Eden MD I agree with the assessment and matheus plan of care. Disposition: 10/16/20 18:21 Hospitalization ordered by Bryan White for Inpatient Admission. Preliminary diagnosis are Pneumonia due to other specified infectious organisms, Coronavirus infection, unspecified, Weakness, Diabetes mellitus due to underlying condition with hyperglycemia. - Bed requested for Telemetry/MedSurg (Inpatient). - Status is Inpatient Admission. - Condition is Fair. - Problem is new. - Symptoms have improved. Signatures: Dispatcher [employer] Abdiel Montoya MD MD cha Attema, Lee, PIPE FITTER HELPER-C PIPE FITTER HELPER-Cla1 Gela Johnson, RN Abdiel Hansen ph, PA PA cp Garcia, Cindy, RN JULIUS Rio Ernandez RN RN Raffaele Evans RN RN ll1 Cordelia Tolliver RN RN [id number] Cordelia Tolliver RN [email or web address] Corrections: (The following items were deleted from the chart) 10/16 18:21 18:21 Hospitalization Ordered by Bryan White DO for Inpatient Admission. Preliminary cp diagnosis is Pneumonia due to other specified infectious organisms; Coronavirus infection, unspecified. Bed requested for Telemetry/MedSurg (Inpatient). Status is Inpatient Admission. Condition is Fair. Problem is new. Symptoms have improved. cp 22:46 18:21 10/16/2020 18:21 Hospitalization Ordered by Bryan White DO for Inpatient cg Admission. Preliminary diagnosis is Pneumonia due to other specified infectious organisms; Coronavirus infection, unspecified; Weakness; Diabetes mellitus due to underlying condition with hyperglycemia. Bed requested for Telemetry/MedSurg (Inpatient). Status is Inpatient Admission. Condition is Fair. Problem is new. Symptoms have improved. cp 10/17 00:21 10/16 22:46 10/16/2020 18:21 Hospitalization Ordered by Bryan White DO for Inpatient wh Admission. Preliminary diagnosis is Pneumonia due to other specified infectious organisms; Coronavirus infection, unspecified; Weakness; Diabetes mellitus due to underlying condition with hyperglycemia. Bed requested for Telemetry/MedSurg (Inpatient). Status is Inpatient Admission. Condition is Fair. Problem is new. Symptoms have improved. cg
--- NOTE | 2020-10-16 18:22 | ER ---
Nurse's Notes [facility] Name: Ana Laura Davis Age: 65 yrs Sex: Female : 1955 Arrival Date: 10/16/2020 Time: 14:44 Bed 26 Private MD: Diagnosis: Pneumonia due to other specified infectious organisms;Coronavirus infection, unspecified;Weakness;Diabetes mellitus due to underlying condition with hyperglycemia Presentation: 10/16 14:51 Chief complaint: Patient states: Still very dizzy and weak for 4+ days. Sugar 463 today ll1 at home. Just not felling well, zimmerman positive last visit. Coronavirus screen: Client denies travel out of the [place] in the last 14 days. cough unrelated to allergies, nausea, loss of taste or smell, vomiting. Client presents with at least one sign or symptom that may indicate coronavirus-19. Standard/surgical mask placed on the client. Ebola Screen: Patient denies travel to an Ebola-affected area in the 21 days before illness onset. No acute neurological deficit is noted. Initial Sepsis Screen: Does the patient meet any 2 criteria? HR > 90 bpm. No. Patient's initial sepsis screen is negative. Does the patient have a suspected source of infection? Yes: Productive cough/pneumonia. Risk Assessment: Do you want to hurt yourself or someone else? Patient reports no desire to harm self or others. Onset of symptoms was October 12, 2020. 14:51 Method Of Arrival: Ambulatory ll1 14:51 Acuity: [place] 2 ll1 Stroke Activation: Symptom onset > 6 hours Physician: Stroke Attending; Name: ; Notified At: ; Arrived At: Physician: Chief Stroke Resident; Name: ; Notified At: ; Arrived At: Physician: Stroke Resident; Name: ; Notified At: ; Arrived At: Physician: ED Attending; Name: ; Notified At: ; Arrived At: Physician: ED Resident; Name: ; Notified At: ; Arrived At: Historical: - Allergies: 14:54 Latex, Natural Rubber; ll1 - PMHx: 14:54 Diabetes - IDDM; High Cholesterol; Hypertension; ll1 - PSHx: 14:54 None; ll1 - Immunization history:: Flu vaccine is up to date. - Social history:: Smoking status: Patient denies any tobacco usage or history of. Screenin:26 Abuse screen: Denies threats or abuse. Denies injuries from another. Nutritional ph screening: No deficits noted. Tuberculosis screening: No symptoms or risk factors identified. Fall Risk None identified. Assessment: 16:00 Reassessment: Patient appears in no apparent distress at this time. Patient and/or ph family updated on plan of care and expected duration. Pain level reassessed. Patient is alert, oriented x 3, equal unlabored respirations, skin warm/dry/pink. General: Appears in no apparent distress. uncomfortable, slender, well groomed, Behavior is calm, cooperative, appropriate for age, Denies fever. Pain: Denies pain. Neuro: Level of Consciousness is awake, alert, obeys commands, Oriented to person, place, time, situation, Moves all extremities. Full function Speech is normal, Reports dizziness, weakness 'all over" Denies headache. Cardiovascular: Denies chest pain, shortness of breath, Capillary refill < 3 seconds in bilateral fingers Patient's skin is warm and dry. Rhythm is sinus tachycardia. Respiratory: Airway is patent Respiratory effort is even, unlabored, Respiratory pattern is regular, symmetrical. GI: Reports diarrhea, Patient currently denies abdominal pain, nausea. : No signs and/or symptoms were reported regarding the genitourinary system. Derm: Skin is intact, Skin is pink, warm \\T\\ dry. 17:00 Reassessment: Patient appears in no apparent distress at this time. Patient and/or ph family updated on plan of care and expected duration. Pain level reassessed. Patient is alert, oriented x 3, equal unlabored respirations, skin warm/dry/pink. 18:00 Reassessment: Patient appears in no apparent distress at this time. Patient and/or ph family updated on plan of care and expected duration. Pain level reassessed. Patient is alert, oriented x 3, equal unlabored respirations, skin warm/dry/pink. 19:15 Reassessment: Patient appears in no apparent distress at this time. Patient and/or wh family updated on plan of care and expected duration. Pain level reassessed. Patient is alert, oriented x 3, equal unlabored respirations, skin warm/dry/pink. 20:00 Reassessment: Provider was made aware Pt flagged for Sepsis and Lactate was elevated at 3.3, Per Provider 1.5 L fluid bolus is enough. 21:00 Reassessment: Patient appears in no apparent distress at this time. No changes from previously documented assessment. Patient is alert, oriented x 3, equal unlabored respirations, skin warm/dry/pink. Explained to PT situation regarding room assignement. 23:00 Reassessment: Patient appears in no apparent distress at this time. Patient and/or family updated on plan of care and expected duration. Pain level reassessed. Patient is alert, oriented x 3, equal unlabored respirations, skin warm/dry/pink. Vital Signs: 14:51 BP 106 / 70; Pulse 122; Resp 18; Temp 98.3; Pulse Ox 99% ; Weight 69.4 kg; Height 5 ft. ll1 1 in. (154.94 cm); Pain 0/10; 16:45 BP 106 / 72; Pulse 121; Resp 16; Pulse Ox 99% on R/A; ph 17:46 BP 104 / 68; Pulse 119; Resp 20; Pulse Ox 99% on R/A; ph 20:00 BP 115 / 68; Pulse 113; Resp 18; Pulse Ox 97% on R/A; wh 21:30 BP 104 / 57; Pulse 115; Resp 18; Pulse Ox 94% on R/A; wh 23:00 BP 127 / 60; Pulse 112; Resp 18; Pulse Ox 95% on R/A; wh 14:51 Body Mass Index 28.91 (69.40 kg, 154.94 cm) ll1 ED Course: 14:44 Patient arrived in ED. as 14:54 Triage completed. ll1 14:54 Arm band placed on. ll1 14:58 [facility] cp 14:58 Abdiel Eden MD is Attending Physician. cp 15:25 Gela Johnson, JULIUS is Primary Nurse. ph 15:26 Patient has correct armband on for positive identification. Bed in low position. Call ph light in reach. 15:30 XRAY Chest (1 view) In Process Unspecified. EDMS 16:01 Missed attempt(s): 22 gauge in left antecubital area. Bleeding controlled, band aid hb applied, catheter tip intact. 16:07 Inserted saline lock: 22 gauge in left antecubital area, using aseptic technique. Blood hb collected. 16:54 Notified Nurse Practitioner and/or Physician Print Decorator of a critical lab result(s), hb glucose 582. 16:59 CT Head Brain wo Cont In Process Unspecified. EDMS 18:20 Bryan White DO is Hospitalizing Provider. cp 18:35 First set of blood cultures drawn by me, Wound culture swab sent to lab. jp3 18:45 Second set of blood cultures drawn by me, Urine collected: clean catch specimen, clear, jp3 kd colored, ABG drawn. 18:56 Lactate Sent. jp3 18:56 Procalcitonin Sent. jp3 18:56 CRP Sent. jp3 18:56 Blood Culture Adult (2) Sent. jp3 23:28 No provider procedures requiring assistance completed. Patient admitted, IV remains in place. Administered Medications: 17:00 Not Given (Physician Discretion): NS 0.9% 500 ml IV at bolus once cp 17:00 Drug: NS 0.9% 1000 ml Route: IV; Rate: 1000 ml/hr; Site: left antecubital; 23:24 Follow up: Response: No adverse reaction; IV Status: Completed infusion 17:45 Drug: Insulin Regular Human 10 units {Co-Signature: [id number] (Cordelia Tolliver RN).} Route: ph IVP; Site: left antecubital; 23:24 Follow up: Response: No adverse reaction; Blood sugar is lowered 18:50 Drug: Zofran (Ondansetron) 4 mg Route: IVP; Site: left antecubital; dm14 19:23 Follow up: Response: No adverse reaction 20:01 Drug: Rocephin 1 grams Route: IV; Rate: calculated rate; Site: left antecubital; 23:24 Follow up: Response: No adverse reaction; IV Status: Completed infusion 20:10 Drug: NS 0.9% 500 ml Route: IV; Rate: bolus; Site: left antecubital; 23:23 Follow up: IV Status: Infusion continued upon admission 23:23 Follow up: Response: No adverse reaction; IV Status: Completed infusion 20:12 Drug: Zithromax 500 mg Route: IVPB; Infused Over: 1 hrs; Site: left antecubital; 23:24 Follow up: Response: No adverse reaction; IV Status: Completed infusion 20:57 Drug: Zofran (Ondansetron) 4 mg Route: IVP; Site: left antecubital; 23:24 Follow up: Response: No adverse reaction; Nausea is decreased Outcome: 18:21 Decision to Hospitalize by Provider. cp 23:28 Admitted to Tele accompanied by tech, via stretcher, room 403, with chart, Report called to Jos Ramos RN 23:28 Condition: stable 23:28 Instructed on the need for admit. 10/17 00:21 Patient left the ED. Signatures: Dispatcher [employer] Catia Hicks Patricia, RN RN ph Abdiel Hurtado, PA PA cp Vandana Langston, RN RN Rio Ernandez, RN RN Harman Fisher jp3 Raffaele Eavns RN RN ll1 Cordelia Tolliver RN RN dm14 Cordelia Tolliver RN dm14
[2020-10-16] MEDS ORDERED: ONDANSETRON 4 MG/2 ML VIAL ONE ×3 (18:45→20:54)
--- NOTE | 2020-10-16 19:33 | P.HP ---
Certification for Inpatient Patient admitted to: Observation With expected LOS: <2 Midnights Patient will require the following post-hospital care: None Practitioner: I am a practitioner with admitting privileges, knowledge of patient current condition, hospital course, and medical plan of care. Services: Services provided to patient in accordance with Admission requirements found in Title 42 Section 412.3 of the Code of Federal Regulations Patient History Date of Service: 10/16/20 Primary Care Provider: Dr. Varela Reason for admission: Hyperglycemia, elevated troponin History of Present Illness: 65-year-old Afro-[place] female with history of hypertension, hyperlipidemia, diabetes mellitus type 2-insulin dependent presents emergency department for hyperglycemia, weakness, dizziness. Patient evaluated in the emergency department found to be hyperglycemic blood sugar 582 not in DKA at this time %period% creatinine 2.0 to recent admission for DKA with acute renal failure which had improved with a creatinine of 1.68 at discharge creatinine 2.0 to today. Initial troponin 0.06 patient recently tested positive for Villalta virus on 10/12/2020. CRP level 24.2 patient not having any problems with her breathing at this time. Will admit under observation for hyperglycemia, mildly elevated troponin. Allergies latex Allergy (Intermediate, Verified 01/16/13 12:38) unknown Home Medications: Aspirin Chewable [Aspirin Chewable*] 81 mg PO DAILY 01/14/13 Calcium Carbonate/Vitamin D3 [Calcium 600 + Vit D Tablet] 1 each PO DAILY 01/14/13 Cholecalciferol (Vitamin D3) [Vitamin D3] 1,000 unit PO DAILY 01/14/13 Metformin HCl [Glucophage*] 1,000 mg PO BID 01/14/13 Potassium Gluconate [Potassium] 550 mg PO DAILY 01/14/13 Pravastatin Sodium [Pravachol] 40 mg PO DAILY 01/14/13 Insulin Glargine Human [Lantus*] 50 unit SQ BEDTIME #1 ml 01/17/13 Insulin Regular, Human [Humulin R] 0 unit SQ PRN PRN #1 ml 01/17/13 Insulin Regular, Human [Humulin R] 10 unit SQ TIDWM #1 ml 01/17/13 Valsartan/Hydrochlorothiazide [Diovan Hct 320-12.5 mg Tab] 1 tab PO DAILY #30 tablet 01/17/13 Ascorbic Acid [Vitamin C with Shanna Hips] 2,000 mg PO BID #240 tab.chew 10/13/20 Benzonatate [Tessalon Perle*] 200 mg PO TID PRN #90 cap 10/13/20 Cholecalciferol (Vitamin D3) [Vitamin D3] 4,000 unit PO DAILY #60 capsule 10/13/20 Famotidine [Pepcid*] 20 mg PO DAILY #30 tab 10/13/20 Zinc Sulfate [Zinc Sulfate*] 220 mg PO DAILY #30 cap 10/13/20 - Past Medical/Surgical History Diabetic: Yes -: Hypertension, diabetes mellitus, hyperlipidemia -: none Psychosocial/ Personal History: Patient works for the [employer], lives with family - Family History Mother -: Diabetes - Social History Smoking Status: Never smoker Alcohol use: No CD- Drugs: No Caffeine use: Yes Place of Residence: Home Review of Systems 10-point ROS is otherwise unremarkable General: Chills, Weakness, Malaise Physical Examination - Physical Exam General: Alert, In no apparent distress HEENT: Atraumatic, PERRLA, Other (Mucous membranes dry) Neck: Supple, 2+ carotid pulse no bruit, No LAD Respiratory: Clear to auscultation bilaterally, Normal air movement Cardiovascular: Regular rate/rhythm, Normal S1 S2 Gastrointestinal: Normal bowel sounds, No tenderness Musculoskeletal: No tenderness Integumentary: No rashes Neurological: Normal speech, Normal strength at 5/5 x4 extr, Normal tone, Normal affect - Studies Laboratory Data (last 24 hrs) 10/16/20 16:08: PT 9.8, INR 0.85 10/16/20 16:08: WBC 7.20 D, Hgb 14.6 D, Hct 45.5 H D, Plt Count 167 D 10/16/20 16:08: Sodium 139, Potassium 4.2, BUN 43 H, Creatinine 2.02 H, Glucose 582 H*, Magnesium 2.5 H, Total Bilirubin 0.5, AST 36, ALT 56, Alkaline Phosphatase 74 Assessment and Plan - Plan Assessment Diabetes mellitus type 2 test insulin-dependent with hyperglycemia Acute kidney injury possible underlying CKD Mildly elevated troponin level Hypertension Hyperlipidemia Positive for Villalta virus Plan Diabetes mellitus type 2 test insulin-dependent with hyperglycemia: Aggressive rehydration with fluid bolus in the ER, min fluids. Continue home Lantus 50 units subcutaneous at bedtime in addition to a.c. HS Accu-Cheks, sliding scale insulin therapy. Will check for recent A1c, will obtain if not. No DKA at this time. ADA diet. DVT prophylaxis heparin 5000 subcutaneous twice daily. Acute kidney injury possible underlying CKD: Recent admission for DKA with acute renal failure, creatinine 1.68 at discharge, has increased to 2.02. Will continue with hydration overnight recheck with morning labs, renal ultrasound in the morning if not done with previous admission. Consult nephrology as necessary. Mildly elevated troponin level: Trend troponins, patient without any chest pain at this time, mildly tachycardic likely related to demand consult cardiology as necessary. Hypertension: Hold Diovan due to renal function. Hyperlipidemia: Continue home med Positive for Villalta virus: No respiratory symptoms at this time, CRP around 20. Will trend CRP level, will avoid steroids if possible due to blood sugar. Discharge Plan: Home Plan to discharge in: 24 Hours - Advance Directives Does patient have a Living Will: No Does patient have a Durable POA for Healthcare: No - Code Status/Comfort Care Code Status Assessed: Yes (Full code) Critical Care: No Time Spent Managing Pts Care (In Minutes): 55
[2020-10-16 20:09] LABS: Urine Blood TRACE (NEG); Urine Glucose 3+ (NEG); Urine Protein NEGATIVE (NEG); Urine pH 5.5 (5.0-7.0)
[2020-10-16] MEDS ORDERED: NA CHLORIDE 0.9% 250 ML ONE (20:27)
[2020-10-16] MEDS ORDERED: AZITHROMYCIN 500 MG INJ IVPB ONE (20:27)
[2020-10-16] MEDS ORDERED: CEFTRIAXONE/SWI 1gm 1 GM/10 ML SYR ONE (20:28)
[2020-10-16] MEDS: NA CHLORIDE 0.9% 1,000 ML IV SCH (20:53)
[2020-10-16] MEDS ORDERED: ONDANSETRON 4 MG/2 ML VIAL IV PRN (20:53)
[2020-10-16] MEDS ORDERED: BENZONATATE 100 MG CAP PO PRN (20:53)
[2020-10-16] MEDS ORDERED: D50W 25 GM/50 ML SYRINGE IV PRN (20:53)
[2020-10-16] MEDS ORDERED: GLUCAGON 1 MG/VIAL IM PRN (20:53)
[2020-10-16] MEDS: INSULIN -REGULAR HUMAN 50 UNIT/0.5 ML ML SQ SCH (21:00)
[2020-10-16] MEDS ORDERED: INSULIN GLARGINE 100 UNITS/ML SQ SCH (21:00)
[2020-10-16] MEDS: HEPARIN 5000 UNIT/ML 1 ML VIAL SQ SCH (21:00)
[2020-10-16 21:22] LABS: Urine Bacteria NONE SEEN /HPF (<20); Urine Mucus 1+ /HPF (NONE SEEN); Urine RBC <5 /HPF (NONE SEEN)
[2020-10-16] MEDS ORDERED: INSULIN GLARGINE 100 UNITS/ML SQ ONE (21:47)
[2020-10-16] MEDS ORDERED: HEPARIN 5000 UNIT/ML 1 ML VIAL ONE ×2 (21:48→21:56)
[2020-10-16] MEDS ORDERED: NA CHLORIDE 0.9% 1,000 ML ONE (21:48)
[2020-10-17 00:57] VITALS: BMI 29.0
[2020-10-17 04:43] LABS: Absolute Lymphocytes (CBC) 1.6 K/uL (0.7-4.9); Basophils % 0.2 % (0-1.3); Lymphocytes % 22.5 % (15.3-44.8); RBC Red Blood Cell Count 5.18 M/uL (3.86-4.86)
[2020-10-17] MEDS: NA CHLORIDE 0.9% 1,000 ML IV SCH (04:53)
[2020-10-17 05:17] LABS: C-Reactive Protein 21.6 mg/L (<3.00); Magnesium 2.3 mg/dL (1.8-2.4); Potassium 3.4 mmol/L (3.5-5.1); Thyroid Stimulating Hormone 0.641 uIU/mL (0.360-3.740); Troponin I 0.07 ng/mL (0.0-0.045)
[2020-10-17] MEDS ORDERED: CEFTRIAXONE 1 GM/NS 50 ML 1 GM/50 ML BAG IV SCH (06:14)
[2020-10-17] MEDS ORDERED: AZITHROMYCIN IV 500 MG in NA CHLORIDE 0.9% 250 ML IVPB ONE (06:14)
[2020-10-17] MEDS ORDERED: NACHLORIDE 0.45% 1,000 ML IV SCH (07:00)
[2020-10-17] MEDS: INSULIN -REGULAR HUMAN 50 UNIT/0.5 ML ML SQ SCH ×4 (07:30→20:48)
[2020-10-17] MEDS: ASPIRIN 81 MG CHEWABLE TABLET PO SCH (08:50)
[2020-10-17] MEDS: VITAMIN D 1000 UNIT TAB PO SCH (08:50)
[2020-10-17] MEDS: CEFTRIAXONE/SWI 1gm 1 GM/10 ML SYR IV SCH (08:50)
[2020-10-17] MEDS: ASCORBIC ACID 500 MG TABLET PO SCH ×2 (08:50→20:47)
[2020-10-17] MEDS: HEPARIN 5000 UNIT/ML 1 ML VIAL SQ SCH ×2 (08:51→20:48)
[2020-10-17] MEDS: FAMOTIDINE 20 MG TAB PO SCH (08:51)
[2020-10-17] MEDS: ZINC SULFATE 220 MG CAP PO SCH (08:51)
[2020-10-17] MEDS ORDERED: NACHLORIDE 0.45% 500 ML IV SCH (09:00)
[2020-10-17] MEDS ORDERED: POTASSIUM 25 MEQ EFFERV TAB PO ONE (09:00)
[2020-10-17] MEDS: D5 0.45 NS 1,000 ML IV SCH ×2 (11:43→22:07)
--- NOTE | 2020-10-17 14:05 | P.PN ---
Subjective Date of Service: 10/17/20 Primary Care Provider: Dr. Varela Chief Complaint: Hyperglycemia, elevated troponin Subjective: Other (Patient feels slightly better.) Physical Examination - Vital Signs Temperature: 98.7 F Blood Pressure: 123/56 Pulse: 101 Respirations: 19 Pulse Ox (%): 93 - Studies Laboratory Data (last 24 hrs) 10/16/20 16:08: PT 9.8, INR 0.85 10/16/20 16:08: WBC 7.20 D, Hgb 14.6 D, Hct 45.5 H D, Plt Count 167 D 10/16/20 16:08: Sodium 139, Potassium 4.2, BUN 43 H, Creatinine 2.02 H, Glucose 582 H*, Magnesium 2.5 H, Total Bilirubin 0.5, AST 36, ALT 56, Alkaline Phosphatase 74 Assessment & Plan Discharge Plan: Home Plan to discharge in: 48 Hours Physician Review Additional Text: Assessment Diabetes mellitus type 2 insulin-dependent with hyperglycemia and hypoglycemia Acute kidney injury possible underlying CKD with hyperkalemia Mildly elevated troponin level Hypertension Hyperlipidemia COVID 19 positive, asymptomatic Left retro cardio infiltrate/pneumonia suspected Plan Diabetes mellitus type 2 insulin-dependent with hyperglycemia and hypoglycemia: Patient appears dehydrated. Patient given IV fluid boluses upon admission. Continue to adjust IV fluids. Patient with history of insulin pump. Insulin pump now off. Patient was started on Lantus 50. Patient with episode of hypoglycemia. Will hold Lantus at this time. Continue to monitor Accu-Cheks and sliding scale. Will adjust IV fluids accordingly. Will need to monitor for DKA. Will check BMP later. Patient with recent hospitalization for DKA and acute renal failure. Will continue monitor closely. Need to adjust medications accordingly. Anticipate improvement over the next 48 hr. Acute kidney injury possible underlying CKD with hyperkalemia: Patient appears dehydrated. Patient given IV fluid boluses upon admission. IV fluids adjusted accordingly due to hyperglycemia and hypoglycemia. Nephrology consulted. Await recommendations. Renal ultrasound to be obtained. Mildly elevated troponin level: Continue to trend troponins. Case discussed with cardiology. Obtain echocardiogram to further evaluate. Likely no need for intervention. Hypertension: Diovan discontinued due to acute renal injury and likely chronic renal disease. Will monitor closely. May need to add metoprolol. Hyperlipidemia: Continue medication COVID 19 positive, asymptomatic: No respiratory symptoms at this time, CRP around 20. Will monitor closely. Patient on room air. No need for steroids at this time. Will provide supplementation. Left retro cardio infiltrate/pneumonia suspected: Will start Rocephin and Zithromax. Recheck chest x-ray tomorrow Time Spent Managing Pts Care (In Minutes): 55
[2020-10-17] MEDS ORDERED: D50W 25 GM/50 ML VIAL IV PRN (15:00)
[2020-10-17 15:26] LABS: Potassium 4.3 mmol/L (3.5-5.1)
--- NOTE | 2020-10-17 15:31 | RAD REPORT ---
EXAM DESCRIPTION: US - Renal Ultrasound-Complete - 10/17/2020 2:46 pm CLINICAL HISTORY: Abdominal pain COMPARISON: None. FINDINGS: The right kidney measures 10 cm with an increased echotexture. The left kidney measures 10 cm with an increased echotexture. Hydronephrosis is not seen. No gross abnormality of bladder is seen IMPRESSION: Mildly increased renal echotexture probably indicating parenchymal disease
[2020-10-17] MEDS: ATORVASTATIN 10 MG TAB PO SCH (20:47)
[2020-10-17] MEDS: THIAMINE HCL 100 MG TABLET PO SCH (20:47)
[2020-10-18 04:58] LABS: Magnesium 1.9 mg/dL (1.8-2.4); Potassium 3.7 mmol/L (3.5-5.1)
[2020-10-18] MEDS: CEFTRIAXONE/SWI 1gm 1 GM/10 ML SYR IV SCH (06:37)
[2020-10-18] MEDS: INSULIN -REGULAR HUMAN 50 UNIT/0.5 ML ML SQ SCH ×4 (07:59→20:55)
[2020-10-18] MEDS ORDERED: INSULIN GLARGINE 100 UNITS/ML SQ SCH (08:00)
[2020-10-18] MEDS: AZITHROMYCIN 250 MG TAB PO SCH (08:02)
[2020-10-18] MEDS: THIAMINE HCL 100 MG TABLET PO SCH ×2 (08:02→20:53)
[2020-10-18] MEDS: ZINC SULFATE 220 MG CAP PO SCH (08:02)
[2020-10-18] MEDS: VITAMIN D 1000 UNIT TAB PO SCH (08:02)
[2020-10-18] MEDS: ASCORBIC ACID 500 MG TABLET PO SCH ×2 (08:03→20:54)
[2020-10-18] MEDS: ASPIRIN 81 MG CHEWABLE TABLET PO SCH (08:03)
[2020-10-18] MEDS: FAMOTIDINE 20 MG TAB PO SCH (08:03)
[2020-10-18] MEDS: HEPARIN 5000 UNIT/ML 1 ML VIAL SQ SCH ×2 (08:03→20:54)
--- NOTE | 2020-10-18 08:25 | RAD REPORT ---
EXAM DESCRIPTION: RAD - Chest Single View - 10/18/2020 7:23 am CLINICAL HISTORY: Pneumonia, left base infiltrate COMPARISON: Portable October 16 TECHNIQUE: AP portable chest image was obtained 10/18/2020 7:23 am . FINDINGS: Lung volumes remain relatively low. Retrocardiac left base opacification has not changed. No worsening of the lung findings. Right lung field remains clear. The trachea is midline. Heart and vasculature are normal. No measurable pleural effusion and no pneumothorax. No acute bony abnormality seen. No acute aortic findings suspected. IMPRESSION: Left base infiltrate has not changed.
[2020-10-18] MEDS ORDERED: POTASSIUM 25 MEQ EFFERV TAB PO ONE (09:00)
[2020-10-18] MEDS ORDERED: NA CHLORIDE 0.9% 500 ML IV ONE (09:52)
--- NOTE | 2020-10-18 09:58 | P.PN ---
Subjective Date of Service: 10/18/20 Primary Care Provider: Dr. Varela Chief Complaint: Hyperglycemia, elevated troponin Subjective: Improving, Doing well Physical Examination - Vital Signs Temperature: 97.9 F Blood Pressure: 122/56 Pulse: 115 Respirations: 18 Pulse Ox (%): 90 - Studies Laboratory Data (last 24 hrs) 10/17/20 15:00: Potassium Cancelled 10/17/20 14:57: Sodium 149 H, Potassium 4.3, BUN 29 H, Creatinine 1.30, Glucose 190 H Assessment & Plan Discharge Plan: Home Plan to discharge in: 24 Hours Physician Review Additional Text: Assessment Diabetes mellitus type 2 insulin-dependent with hyperglycemia and hypoglycemia Acute kidney injury possible underlying CKD with hyperkalemia Mildly elevated troponin level Hypertension Hyperlipidemia COVID 19 positive, asymptomatic Left retro cardio infiltrate/pneumonia Plan Diabetes mellitus type 2 insulin-dependent with hyperglycemia and hypoglycemia: Will give fluid bolus this am. BS was elevated this am as Lantus was held last night. Will restart Lantus 10 units sc BID. Will monitor BS this am. Check orthostatics. Will reassess later today for possible DC later. Will need to make sure BS and BP better. A1c 10. Needs better control of BS. Acute kidney injury possible underlying CKD with hyperkalemia: Patient better hydrated. Will give fluid bolus. Check orthostatics. Mildly elevated troponin level: Continue to trend troponins. Case discussed with cardiology. Obtain echocardiogram to further evaluate. Likely no need for intervention. Hypertension: Will consider starting Metoprolol if blood pressure increases. No medication at this time. Losartan discontinued to acute renal injury. Hyperlipidemia: Continue medication COVID 19 positive, asymptomatic: No respiratory symptoms at this time, CRP around 20. Will monitor closely. Patient on room air. No need for steroids at this time. Will provide supplementation. Left retro cardio infiltrate/pneumonia: X-ray reviewed. Change IV antibiotic therapy to Augmentin and Zithromax. Time Spent Managing Pts Care (In Minutes): 55
[2020-10-18] MEDS ORDERED: NACHLORIDE 0.45% 1,000 ML IV SCH (14:00)
[2020-10-18] MEDS: NACHLORIDE 0.45% 1,000 ML IV SCH (16:00)
[2020-10-18] MEDS ORDERED: ACETAMINOPHEN 500 MG TAB PO PRN (16:44)
[2020-10-18] MEDS: AMOX/K CLAV 500 MG TAB PO SCH (20:53)
[2020-10-18] MEDS: ATORVASTATIN 10 MG TAB PO SCH (20:53)
[2020-10-18] MEDS: INSULIN GLARGINE 100 UNITS/ML SQ SCH (20:54)
[2020-10-19] MEDS: NACHLORIDE 0.45% 1,000 ML IV SCH (02:00)
[2020-10-19 05:23] LABS: Potassium 3.4 mmol/L (3.5-5.1)
[2020-10-19] MEDS ORDERED: NACHLORIDE 0.45% 500 ML IV ONE (05:31)
[2020-10-19] MEDS: METHYLPREDNISOLONE 40 MG INJ IV SCH ×2 (05:41→08:23)
[2020-10-19 05:42] LABS: C-Reactive Protein 38.1 mg/L (<3.00); Ferritin 518.3 ng/mL (8-388)
[2020-10-19] MEDS ORDERED: POTASSIUM 25 MEQ EFFERV TAB PO ONE (06:20)
[2020-10-19] MEDS ORDERED: FUROSEMIDE 20 MG/ 2ML VIAL IV ONE (06:45)
--- NOTE | 2020-10-19 07:43 | RAD REPORT ---
EXAM DESCRIPTION: RAD - Chest Single View - 10/19/2020 7:18 am CLINICAL HISTORY: SOB COMPARISON: Portable October 18 TECHNIQUE: AP portable chest image was obtained 10/19/2020 7:18 am . FINDINGS: Lung volumes remain low. There is questionable slight worsening of airspace opacification at the right base. Retrocardiac left base opacification remains. Failure and volume overload are not believed to be significantly contributing factors. Heart and vasc ulature are normal. No measurable pleural effusion and no pneumothorax. No acute bony abnormality see n. No acute aortic findings suspected. IMPRESSION: Left greater than right lung base opacification showing no improvement. Right base findi ngs may be fractionally worse.
[2020-10-19] MEDS: VITAMIN D 1000 UNIT TAB PO SCH (08:21)
[2020-10-19] MEDS: HEPARIN 5000 UNIT/ML 1 ML VIAL SQ SCH (08:21)
[2020-10-19] MEDS: ZINC SULFATE 220 MG CAP PO SCH (08:22)
[2020-10-19] MEDS: THIAMINE HCL 100 MG TABLET PO SCH ×2 (08:22→21:11)
[2020-10-19] MEDS: ASPIRIN 81 MG CHEWABLE TABLET PO SCH (08:22)
[2020-10-19] MEDS: ASCORBIC ACID 500 MG TABLET PO SCH ×2 (08:22→21:10)
[2020-10-19] MEDS: AZITHROMYCIN 250 MG TAB PO SCH (08:22)
[2020-10-19] MEDS: FAMOTIDINE 20 MG TAB PO SCH (08:22)
[2020-10-19] MEDS: INSULIN GLARGINE 100 UNITS/ML SQ SCH ×2 (08:24→21:11)
[2020-10-19] MEDS: INSULIN -REGULAR HUMAN 50 UNIT/0.5 ML ML SQ SCH ×4 (08:26→21:11)
[2020-10-19] MEDS: AMOX/K CLAV 500 MG TAB PO SCH (08:28)
--- NOTE | 2020-10-19 11:10 | RAD REPORT ---
EXAM DESCRIPTION: CT - Chest For Pe Angio - 10/19/2020 10:39 am CLINICAL HISTORY: SOB, evaluate for PE COMPARISON: Chest Single View dated 10/19/2020 TECHNIQUE: Dynamically enhanced 3 mm thick images of the chest were obtained during administration o f approximately 150mL Isovue 370 IV contrast. Coronal and oblique MIP reconstruction images were gene rated and reviewed. Exam utilizes a protocol to evaluate the pulmonary arterial tree. All CT scans are performed using dose optimization technique as appropriate and may include automated exposure control or mA/KV adjustment according to patient size. FINDINGS: Two segmental branches of the right upper lobe show pulmonary embolism. No pulmonary hemor rhage seen downstream from the emboli. Finding is relatively minimal and would probably not be the so urce for overall shortness of breath or hypoxia. No other sites of pulmonary embolic disease identifi able. The aorta as imaged shows no acute or suspicious finding. No pericardial thickening or effusion. Bilateral lower lung field airspace opacification is present. A few small air bronchograms are seen. Patchy airspace opacification seen in the lingula of the left upper lobe. Lung parenchymal opacificat ion in each lower lobe extends superiorly to each superior segment level. Trace amounts of opacificat ion noted in the right upper and right middle lobes. No pleural effusion or pleural thickening. No mediastinal or hilar suspicious masses. No chest wall masses or abnormal axillary lymphadenopathy. Findings telephoned to the referring physician 11:05 a.m.. IMPRESSION: Pulmonary emboli are present with in two segmental right upper lobe pulmonary arteries. No other emboli seen. Extent of pulmonary embolic diseaseis minimal and may not be the source for shortness of breath or hy poxia. Prominent bilateral lower lobe alveolar opacification with patchy lingula opacification. Bilateral pn eumonia is favored. Pneumonia pattern is nonspecific. Noninfectious alveolar edema from volume overlo ad is possible. In the current clinical environment, COVID-19 pneumonia is a consideration and can be correlated with testing.
--- NOTE | 2020-10-19 11:23 | P.PN ---
Subjective Date of Service: 10/19/20 Primary Care Provider: Dr. Varela Chief Complaint: Hyperglycemia, elevated troponin Subjective: Other (Patient required oxygen last night. Sinus tachycardia still noted) Physical Examination - Vital Signs Temperature: 98.2 F Blood Pressure: 93/56 Pulse: 114 Respirations: 20 Pulse Ox (%): 91 Assessment & Plan Discharge Plan: Home Plan to discharge in: 48 Hours Physician Review Additional Text: Initial chief complaint: 65-year-old female presented with weakness, dizziness and hyperglycemia. Patient with acute renal injury with underlying CKD, pneumonia, and uncontrolled diabetes. Assessment Hypoxia secondary to pulmonary emboli in to segmental right upper lobe pulmonary arteries and bilateral pneumonia complicated with COVID 19 Diabetes mellitus type 2 insulin-dependent with hyperglycemia and hypoglycemia Acute kidney injury possible underlying CKD with hyperkalemia Mildly elevated troponin level secondary to above Hypertension Hyperlipidemia Plan Hypoxia secondary to pulmonary emboli in 2 segmental right upper lobe pulmonary arteries and bilateral pneumonia complicated with COVID 19: Patient required oxygen Overnite. CT reveals pulmonary emboli in 2 segmental right upper lobe pulmonary arteries. Bilateral pneumonia also noted. Patient with positive COVID19. Will change Lovenox DVT prophylaxis to full-dose anti coagulation therapy due to pulmonary embolism. Will start Eliquis for PE treatment. Will also discontinue Rocephin and Zithromax and change to Levaquin for broader coverage. Will adjust IV Solu-Medrol to prednisone for COVID 19. Echocardiogram ordered to further evaluate. Will also consult pulmonology for further recommendation. Maintain sats above 93%. Continue to wean off oxygen. Patient will likely require home oxygen at discharge. Continue vitamin supplementation. Anticipate improvement over the next 48 hr. Will monitor closely. I will turn the service over to the hospitalist team tomorrow. I will go plan of care with him. Diabetes mellitus type 2 insulin-dependent with hyperglycemia and hypoglycemia: Patient now on Lantus 10 units subcu twice daily. Her insulin pump remains off. Hemoglobin A1c elevated. Will need to monitor and adjust medication. Sliding scale in place. Acute kidney injury possible underlying CKD with hyperkalemia: Patient better hydrated. Patient appeared to be volume overloaded. Lasix given today. Will monitor blood pressure. May need to provide low-dose IV fluids if blood pressure remains low. Mildly elevated troponin level secondary to above: Elevated troponin likely related to pulmonary embolism. Obtain echocardiogram to further evaluate. Hypertension: Patient takes valsartan hydrochlorothiazide. Continue to hold blood pressure medication. Will monitor closely. Patient may require additional IV fluid if low. Will consider restarting medication if blood pressure remains normal. Continue monitor orthostatics. Hyperlipidemia: Continue medication Time Spent Managing Pts Care (In Minutes): 55
[2020-10-19] MEDS: APIXABAN 5 MG TABLET PO SCH ×2 (12:36→21:10)
[2020-10-19] MEDS: levoFLOXacin 750 MG TAB PO SCH (15:41)
[2020-10-19] MEDS ORDERED: APIXABAN 5 MG TABLET PO SCH (21:00)
[2020-10-19] MEDS ORDERED: predniSONE 20 MG TAB PO SCH (21:00)
[2020-10-19] MEDS: ATORVASTATIN 10 MG TAB PO SCH (21:10)
[2020-10-20 04:41] LABS: Absolute Lymphocytes (CBC) 1.4 K/uL (0.7-4.9); Basophils % 0.3 % (0-1.3); Hematocrit 34.6 % (36.0-45.0); Lymphocytes % 17.9 % (15.3-44.8); MPV 11.4 fL (7.6-11.3); RBC Red Blood Cell Count 4.39 M/uL (3.86-4.86)
[2020-10-20 04:59] LABS: BUN Blood Urea Nitrogen 23 mg/dL (7-18); Bicarbonate 31 mmol/L (21-32); Ferritin 521.8 ng/mL (8-388); Glucose Level 250 mg/dL (74-106); Magnesium 2.1 mg/dL (1.8-2.4); Sodium Level 142 mmol/L (136-145); Troponin I < 0.02 ng/mL (0.0-0.045)
[2020-10-20] MEDS: FAMOTIDINE 20 MG TAB PO SCH (07:58)
[2020-10-20] MEDS: levoFLOXacin 750 MG TAB PO SCH (07:58)
[2020-10-20] MEDS: APIXABAN 5 MG TABLET PO SCH ×2 (07:58→21:31)
[2020-10-20] MEDS: ZINC SULFATE 220 MG CAP PO SCH (07:58)
[2020-10-20] MEDS: ASCORBIC ACID 500 MG TABLET PO SCH ×2 (07:59→21:30)
[2020-10-20] MEDS: predniSONE 20 MG TAB PO SCH ×2 (07:59→21:32)
[2020-10-20] MEDS: INSULIN GLARGINE 100 UNITS/ML SQ SCH ×2 (08:00→21:33)
[2020-10-20] MEDS: THIAMINE HCL 100 MG TABLET PO SCH ×2 (08:00→21:30)
[2020-10-20] MEDS: INSULIN -REGULAR HUMAN 50 UNIT/0.5 ML ML SQ SCH ×4 (08:03→21:32)
[2020-10-20] MEDS: VITAMIN D 1000 UNIT TAB PO SCH (08:03)
--- NOTE | 2020-10-20 08:23 | P.DS ---
Admission Date: 10/17/20 Discharge Date: 10/20/20 Primary Care Provider: Dr. Escobar Reason for Admission: Hyperglycemia, elevated troponin Consultations: Pulmonary-Dr. Oliver Nephrology-Dr. Gregory Procedures: COVID: Positive CT Head: FINDINGS: No intracranial hemorrhage, hydrocephalus or extra-axial fluid collection.Mild generalized brain atrophy is present with mild periventricular and deep white matter chronic microvascular ischemic changes.No areas of brain edema or evidence of midline shift. The paranasal sinuses and mastoids are clear. The calvarium is intact. IMPRESSION: No acute intracranial abnormality. CXR: FINDINGS: Lung volumes remain low. There is questionable slight worsening of airspace opacification at the right base. Retrocardiac left base opacification remains. Failure and volume overload are not believed to be significantly contributing factors. Heart and vasculature are normal. No measurable pleural effusion and no pneumothorax. No acute bony abnormality seen. No acute aortic findings suspected. IMPRESSION: Left greater than right lung base opacification showing no improvement. Right base findings may be fractionally worse. CT Chest: FINDINGS: Two segmental branches of the right upper lobe show pulmonary embolism. No pulmonary hemorrhage seen downstream from the emboli. Finding is relatively minimal and would probably not be the source for overall shortness of breath or hypoxia. No other sites of pulmonary embolic disease identifiable. The aorta as imaged shows no acute or suspicious finding. No pericardial thickening or effusion. Bilateral lower lung field airspace opacification is present. A few small air bronchograms are seen. Patchy airspace opacification seen in the lingula of the left upper lobe. Lung parenchymal opacification in each lower lobe extends superiorly to each superior segment level. Trace amounts of opacification noted in the right upper and right middle lobes. No pleural effusion or pleural thickening. No mediastinal or hilar suspicious masses. No chest wall masses or abnormal axillary lymphadenopathy. IMPRESSION: Pulmonary emboli are present with in two segmental right upper lobe pulmonary arteries. No other emboli seen. Extent of pulmonary embolic diseaseis minimal and may not be the source for shortness of breath or hypoxia. Prominent bilateral lower lobe alveolar opacification with patchy lingula opacification. Bilateral pneumonia is favored. Pneumonia pattern is nonspecific. Noninfectious alveolar edema from volume overload is possible. In the current clinical environment, COVID-19 pneumonia is a consideration and can be correlated with testing. ECHO: Obtained Renal US: COMPARISON: None. FINDINGS: The right kidney measures 10 cm with an increased echotexture. The left kidney measures 10 cm with an increased echotexture. Hydronephrosis is not seen. No gross abnormality of bladder is seen IMPRESSION: Mildly increased renal echotexture probably indicating parenchymal disease Medical Problem List: Hypoxia secondary to pulmonary emboli in to segmental right upper lobe pulmonary arteries and bilateral pneumonia complicated with COVID 19 Diabetes mellitus type 2 insulin-dependent with hyperglycemia and hypoglycemia Acute kidney injury with underlying chronic renal disease stage II with hyperkalemia Mildly elevated troponin level secondary to above Hypertension Hyperlipidemia Brief History of Present Illness: 65-year-old -[place] female with history of hypertension, hyperlipidemia, diabetes mellitus type 2-insulin dependent presents emergency department for hyperglycemia, weakness, dizziness. Patient evaluated in the emergency department found to be hyperglycemic blood sugar 582 not in DKA at this time. Patient tested positive for COVID 19 on 10/12. Patient found to have pneumonia. Patient admitted for further evaluation and treatment. Hospital Course: Patient presented with fatigue, weakness and elevated blood sugar. Patient with diabetes mellitus type 2 insulin dependent. Patient also found to have pneumonia. Patient recently tested positive for COVID 19 on 10/12/2020. Patient was admitted for further evaluation and treatment. Patient with history of insulin pump. This was turned off. Patient required IV fluids due to dehydration and acute renal injury. Blood sugars were better controlled. Patient then required oxygen due to hypoxia. Elevated heart rate was noted. Troponin slightly elevated as well. Patient was further evaluated and found to have pulmonary emboli in to segmental right upper lobe pulmonary arteries. Bilateral pneumonia was also present. This was further complicated with COVID 19. Patient has done well. Blood sugars better controlled. Renal function latasha k to baseline. At discharge she is without significant shortness of breath. Vital signs stable. Patient still requires oxygen at discharge. At discharge for her pulmonary emboli, bilateral pneumonia and COVID 19 infection, the patient will continue with home oxygen to maintain sats above 93%. Patient will continue with 2 L per nasal cannula. At discharge the patient will continue with Eliquis 10 mg twice daily for 7 days then 5 mg twice daily follow up pulmonary embolism. At discharge the patient will continue with Levaquin 750 mg 1 pill daily for 7 days. The patient will also continue with prednisone 10 mg 1 pill twice daily for 7 days then 1 pill once daily for 7 days. The patient will continue with Tessalon Perles 3 times a day as needed for cough. Patient will continue with vitamin supplementation including vitamin-C 500 mg 3 times a day, vitamin-D 2000 units daily, thiamine 100 mg 1 pill twice daily, and zinc 220 mg daily. Recommend to continue proning, hand washing, social distancing and face mask use. Patient will continue with CDC guidelines on COVID 19 education and isolation. Patient remains isolative for at least 10 days. Recommend follow up with pulmonology in 1 week to follow up this hospitalization. Pulmonology will further adjust medication and oxygen. Education on pulmonary embolism, Eliquis, and pneumonia will also be provided. Pulmonology will wean off oxygen. Pulmonology will continue to adjust medication including Eliquis. Patient with diabetes mellitus type 2 insulin-dependent with hyperglycemia. Hemoglobin A1c is 10. Patient needs better control over time. Patient with history of insulin pump. This has been turned off. At discharge she will continue with Lantus 15 units subcu twice daily. Patient will also be provided insulin regular to be use as a mild sliding scale. Recommend to maintain blood sugar less than 140 fasting and less than 200 after meals. Further adjustment can be done by her PCP. Recommend recheck lab-A1c in 3 months to monitor her progress. Patient may require endocrinology evaluation as an outpatient to further address and treat. Patient with acute renal injury. Patient received IV fluids. This appears resolved. Renal ultrasound shows chronic renal disease. Patient with stage II disease. Recommend no further use of nonsteroidal anti-inflammatories. Future medications may need to be renally dose. Recommend follow up with the weeks to follow up this hospitalization. Recommend to recheck lab-BMP in 1-2 weeks to monitor her progress. Patient with hypertension. Medications were held during the course of her stay due to low blood pressure. At discharge blood pressure remained stable without medication. Will recommend to discontinue valsartan hydrochlorothiazide at discharge. Patient may continue to monitor blood pressures daily. Recommend to maintain blood pressure less than 130/80. If blood pressures remain above 140/90 she is to contact her PCP for further recommendation. Need to consider other medications if medication is required. Patient with GERD. At discharge she will continue with Pepcid 20 mg daily. Patient with hyperlipidemia. At discharge patient will continue with pravastatin 40 mg daily. <Bryan White - Last Filed: 10/20/20 08:34> Admission Date: 10/17/20 Discharge Date: 10/22/20 <Mara Dan - Last Filed: 10/22/20 09:38> Disposition: ROUTINE DISCHARGE Discharge Condition: GOOD Vital Signs/Physical Exam: Temp Pulse Resp BP Pulse Ox 97.3 F 80 20 112/67 94 10/20/20 04:00 10/20/20 04:00 10/20/20 04:00 10/20/20 04:00 10/20/20 04:00 General: Alert, In no apparent distress, Oriented x3, Cooperative HEENT: Atraumatic Neck: Supple Respiratory: Other (Crackles to the bases. Good air movement bilateral. No respiratory distress noted.) Cardiovascular: Normal pulses, Regular rate/rhythm Gastrointestinal: Normal bowel sounds, Soft and benign, Non-distended, No tenderness, No masses, No rebound, No guarding Musculoskeletal: No erythema, No tenderness, No warmth Integumentary: Skin breakdown, Skin lesion Neurological: Normal speech, Normal strength at 5/5 x4 extr, Normal tone, Normal affect Laboratory Data at Discharge: WBC 8.10 K/uL (4.3-10.9) D 10/20/20 03:51 Hgb 11.4 g/dL (12.0-15.0) L 10/20/20 03:51 Hct 34.6 % (36.0-45.0) L D 10/20/20 03:51 Plt Count 186 K/uL (152-406) 10/20/20 03:51 PT 9.8 SECONDS (9.5-12.5) 10/16/20 16:08 INR 0.85 10/16/20 16:08 Sodium 142 mmol/L (136-145) 10/20/20 03:51 Potassium 4.0 mmol/L (3.5-5.1) 10/20/20 03:51 BUN 23 mg/dL (7-18) H 10/20/20 03:51 Creatinine 0.91 mg/dL (0.55-1.3) 10/20/20 03:51 Glucose 250 mg/dL (74-106) H 10/20/20 03:51 Magnesium 2.1 mg/dL (1.8-2.4) 10/20/20 03:51 Total Bilirubin 0.5 mg/dL (0.2-1.0) 10/16/20 16:08 AST 36 U/L (15-37) 10/16/20 16:08 ALT 56 U/L (12-78) 10/16/20 16:08 Alkaline Phosphatase 74 U/L (45-117) 10/16/20 16:08 Troponin I < 0.02 ng/mL (0.0-0.045) 10/20/20 03:51 <Bryan White - Last Filed: 10/20/20 08:34> Vital Signs/Physical Exam: Temp Pulse Resp BP Pulse Ox 98.7 F 78 16 120/64 94 10/22/20 09:33 10/22/20 09:33 10/22/20 09:33 10/22/20 09:33 10/22/20 09:33 Laboratory Data at Discharge: WBC 8.70 K/uL (4.3-10.9) D 10/22/20 00:13 Hgb 11.2 g/dL (12.0-15.0) L 10/22/20 00:13 Hct 34.0 % (36.0-45.0) L 10/22/20 00:13 Plt Count 278 K/uL (152-406) 10/22/20 00:13 PT 9.8 SECONDS (9.5-12.5) 10/16/20 16:08 INR 0.85 10/16/20 16:08 Sodium 134 mmol/L (136-145) L 10/22/20 06:22 Potassium 4.0 mmol/L (3.5-5.1) 10/22/20 06:22 BUN 15 mg/dL (7-18) 10/22/20 06:22 Creatinine 0.72 mg/dL (0.55-1.3) 10/22/20 06:22 Glucose 191 mg/dL (74-106) H 10/22/20 06:22 Phosphorus 1.7 mg/dL (2.5-4.9) L 10/21/20 03:26 Magnesium 1.9 mg/dL (1.8-2.4) 10/22/20 06:22 Total Bilirubin 0.5 mg/dL (0.2-1.0) 10/16/20 16:08 AST 36 U/L (15-37) 10/16/20 16:08 ALT 56 U/L (12-78) 10/16/20 16:08 Alkaline Phosphatase 74 U/L (45-117) 10/16/20 16:08 Troponin I < 0.02 ng/mL (0.0-0.045) 10/20/20 03:51 <Mara Dan - Last Filed: 10/22/20 09:38> Diet: ADA Activity: Fall precautions Time spent managing pt's care (in minutes): 55 <Bryan White - Last Filed: 10/20/20 08:34> <Mara Dan - Last Filed: 10/22/20 09:38> Home Medications: Pravastatin Sodium [Pravachol] 40 mg PO DAILY 01/14/13 Benzonatate [Tessalon Perle*] 200 mg PO TID PRN #90 cap 10/13/20 Famotidine [Pepcid*] 20 mg PO DAILY #30 tab 10/13/20 Apixaban [Eliquis] 5 mg PO SEECOM #75 tablet 10/20/20 Ascorbic Acid [Vitamin C with Shanna Hips] 500 mg PO TID #90 tab.chew 10/20/20 Cholecalciferol (Vitamin D3) [Vitamin D3] 2,000 unit PO DAILY #30 capsule 10/20/20 Insulin Glargine Human [Lantus*] 15 unit SQ BID #1 vial 10/20/20 Insulin Regular, Human [Novolin R] See Protocol SQ ACHS #1 vial 10/20/20 Thiamine HCl [Vitamin B-1*] 100 mg PO BID #60 tablet 10/20/20 Zinc Sulfate [Zinc Sulfate*] 220 mg PO DAILY #30 cap 10/20/20 levoFLOXacin [Levaquin*] 750 mg PO DAILY #7 tab 10/20/20 predniSONE [Deltasone*] 10 mg PO SEECOM #21 tab 10/20/20 New Medications: predniSONE [Deltasone*] 10 mg PO SEECOM #21 tab Apixaban [Eliquis] 5 mg PO SEECOM #75 tablet Insulin Glargine Human [Lantus*] 15 unit SQ BID #1 vial levoFLOXacin [Levaquin*] 750 mg PO DAILY #7 tab Insulin Regular, Human [Novolin R] See Protocol SQ ACHS #1 vial Thiamine HCl [Vitamin B-1*] 100 mg PO BID #60 tablet Ascorbic Acid [Vitamin C with Shanna Hips] 500 mg PO TID #90 tab.chew Cholecalciferol (Vitamin D3) [Vitamin D3] 2,000 unit PO DAILY #30 capsule Zinc Sulfate [Zinc Sulfate*] 220 mg PO DAILY #30 cap Physician Discharge Instructions: Recommend follow up with PCP in 1 week to follow up this hospitalization. Patient presented with fatigue, weakness and elevated blood sugar. Patient with diabetes mellitus type 2 insulin dependent. Patient also found to have pneumonia. Patient recently tested positive for COVID 19 on 10/12/2020. Patient was admitted for further evaluation and treatment. Patient with history of insulin pump. This was turned off. Patient required IV fluids due to dehydration and acute renal injury. Blood sugars were better controlled. Patient then required oxygen due to hypoxia. Elevated heart rate was noted. Troponin slightly elevated as well. Patient was further evaluated and found to have pulmonary emboli in to segmental right upper lobe pulmonary arteries. Bilateral pneumonia was also present. This was further complicated with COVID 19. Patient has done well. Blood sugars better controlled. Renal function back to baseline. At discharge she is without significant shortness of breath. Vital signs stable. Patient still requires oxygen at discharge. At discharge for her pulmonary emboli, bilateral pneumonia and COVID 19 infection, the patient will continue with home oxygen to maintain sats above 93%. Patient will continue with 2 L per nasal cannula. At discharge the patient will continue with Eliquis 10 mg twice daily for 7 days then 5 mg twice daily follow up pulmonary embolism. At discharge the patient will continue with Levaquin 750 mg 1 pill daily for 7 days. The patient will also continue with prednisone 10 mg 1 pill twice daily for 7 days then 1 pill once daily for 7 days. The patient will continue with Tessalon Perles 3 times a day as needed for cough. Patient will continue with vitamin supplementation including vitamin-C 500 mg 3 times a day, vitamin-D 2000 units daily, thiamine 100 mg 1 pill twice daily, and zinc 220 mg daily. Recommend to continue proning, hand washing, social distancing and face mask use. Patient will continue with CDC guidelines on COVID 19 education and isolation. Patient remains isolative for at least 10 days. Recommend follow up with pulmonology in 1 week to follow up this hospitalization. Pulmonology will further adjust medication and oxygen. Education on pulmonary embolism, Eliquis, and pneumonia will also be provided. Pulmonology will wean off oxygen. Pulmonology will continue to adjust medication including Eliquis. Patient with diabetes mellitus type 2 insulin-dependent with hyperglycemia. Hemoglobin A1c is 10. Patient needs better control over time. Patient with history of insulin pump. This has been turned off. At discharge she will continue with Lantus 15 units subcu twice daily. Patient will also be provided insulin regular to be use as a mild sliding scale. Recommend to maintain blood sugar less than 140 fasting and less than 200 after meals. Further adjustment can be done by her PCP. Recommend recheck lab-A1c in 3 months to monitor her progress. Patient may require endocrinology evaluation as an outpatient to further address and treat. Patient with acute renal injury. Patient received IV fluids. This appears resolved. Renal ultrasound shows chronic renal disease. Patient with stage II disease. Recommend no further use of nonsteroidal anti-inflammatories. Future medications may need to be renally dose. Recommend follow up with the weeks to follow up this hospitalization. Recommend to recheck lab-BMP in 1-2 weeks to monitor her progress. Patient with hypertension. Medications were held during the course of her stay due to low blood pressure. At discharge blood pressure remained stable without medication. Will recommend to discontinue valsartan hydrochlorothiazide at discharge. Patient may continue to monitor blood pressures daily. Recommend to maintain blood pressure less than 130/80. If blood pressures remain above 140/90 she is to contact her PCP for further recommendation. Need to consider other medications if medication is required. Patient with GERD. At discharge she will continue with Pepcid 20 mg daily. Patient with hyperlipidemia. At discharge patient will continue with pravastatin 40 mg daily. Followup: Donald Escobar MD [Primary Care Provider] -
--- NOTE | 2020-10-20 12:12 | PN ---
Date of Progress Note: 10/20/2020 Ms. Davis was admitted with elevated troponin, hyperglycemia, dizziness. She normally is a patient of Dr. Escobar, has diabetes, hypertension, dyslipidemia. She is on aspirin, Lipitor, insulin, and Lasi x. May need an outpatient cardiac workup as far as the stress test was concern, although she never r eally had any chest pain, but with her elevated troponin, an echocardiogram is pending. We will see what that shows. If this is normal, she can go home. If it is not normal, she will need a heart cat heterization. ALFRED/LINDSAY Voice ID: [id number] Report ID: [id number]
[2020-10-20] MEDS ORDERED: NA CHLORIDE 0.9% 250 ML IV ONE (12:23)
--- NOTE | 2020-10-20 15:21 | P.PN ---
Subjective Date of Service: 10/20/20 Primary Care Provider: Dr. Escobar Chief Complaint: Hyperglycemia, elevated troponin Subjective: Improving, Doing well Physical Examination - Vital Signs Temperature: 96.9 F Blood Pressure: 110/67 Pulse: 106 Respirations: 26 Pulse Ox (%): 93 Assessment & Plan Discharge Plan: Home Plan to discharge in: 24 Hours Physician Review Additional Text: Initial chief complaint: 65-year-old female presented with weakness, dizziness and hyperglycemia. Patient with acute renal injury with underlying CKD, pneumonia, and uncontrolled diabetes. Physical exam: Patient alert, cooperative. No significant distress noted. Heart: Regular rate rhythm Lungs: Mild crackles to the bases. Abdomen: Soft nontender Extremities: Good range of motion to the upper lower extremities. No focal deficits. No edema. Assessment Hypoxia secondary to pulmonary emboli in to segmental right upper lobe pulmonary arteries and bilateral pneumonia complicated with COVID 19 Diabetes mellitus type 2 insulin-dependent with hyperglycemia and hypoglycemia Acute kidney injury possible underlying CKD with hyperkalemia Mildly elevated troponin level secondary to above Hypertension Hyperlipidemia Plan Hypoxia secondary to pulmonary emboli in 2 segmental right upper lobe pulmonary arteries and bilateral pneumonia complicated with COVID 19: Patient is doing well this time. Orthostatics still abnormal. Bolus given. Will continue to reassess. Possible discharge as early as today. Patient remains on Levaquin. Patient also on Eliquis. Will adjust IV Solu-Medrol to prednisone for COVID 19. Echo pending. Recheck blood pressure later today. If ambulating without significant abnormal orthostatics then discharge. Diabetes mellitus type 2 insulin-dependent with hyperglycemia and hypoglycemia: Patient now on Lantus 10 units subcu twice daily. Her insulin pump remains off. Hemoglobin A1c elevated. Will need to monitor and adjust medication. Sliding scale in place. Acute kidney injury possible underlying CKD with hyperkalemia: Patient better hydrated. Patient appeared to be volume overloaded. Lasix given today. Will monitor blood pressure. May need to provide low-dose IV fluids if blood pressure remains low. Mildly elevated troponin level secondary to above: Elevated troponin likely related to pulmonary embolism. Obtain echocardiogram to further evaluate. Hypertension: Patient takes valsartan hydrochlorothiazide. Continue to hold blood pressure medication. Will monitor closely. Patient may require additional IV fluid if low. Will consider restarting medication if blood pressure remains normal. Continue monitor orthostatics. Hyperlipidemia: Continue medication Time Spent Managing Pts Care (In Minutes): 55
--- NOTE | 2020-10-20 18:33 | CON ---
Date of Consultation: 10/17/2020 Reason For Consultation: Borderline elevated troponin. History Of Present Illness: A 65-year-old female presented to the hospital due to high sugar, histor y of hypertension, dyslipidemia, diabetes. She is feeling generally weak. Denies having chest pain. No shortness of breath. No nausea, vomiting, or diarrhea. She was tested positive for Coronavirus back on October 12, 2020. Past Medical History: As outlined above in HPI. Medications: Refer consultation sheet for detailed list. Allergies: LATEX. Family History: No premature coronary artery disease, cancer. Social History: She does not smoke or drink. Does not use any drugs. Review of Systems: All systems reviewed and they were negative except for what mentioned in the HPI. Physical Examination: Vital Signs: Temperature is 98.3, pulse is 114, breathing at 16, blood pressure 124/76, saturating 9 5%. General: Pleasant middle-aged female, in no apparent distress. Head and Neck: Pupils are equal, react to light. Intact eye movements. No JVD. No cervical lympha denopathy. Neck: Supple. Thyroid is not enlarged. Lungs: Rhonchi bilaterally. No accessory muscle use. Heart: Regular. No extra sounds. Abdomen: Soft, nontender. Bowel sounds positive. No organomegaly. No rigidity or rebound. Extremities: No clubbing, cyanosis. Intact pulses. Skin: No rash. Neurologic: Alert, awake, oriented x3. No acute focal deficits appreciated. Investigations: Creatinine 1.14, sugar 368. Troponin 0.07 and 0.06. White blood cell count is 7.1 and hemoglobin 13.1. Assessment And Plan: Elevated troponin, borderline, could be demand ischemia. She has COVID, also c ould be causing this troponin leak. Obtain an echocardiogram and determine the plan accordingly and also trend troponin. Make sure the patient please take an aspirin daily and if troponin trends down and echo are normal, then outpatient workup with a stress test will be recommended. /LINDSAY Voice ID: [id number] Report ID: [id number]
--- NOTE | 2020-10-20 20:47 | P.CNS ---
Date of Consult: 10/20/20 Reason for Consult: elevated creatinine Primary Care Provider: Dr. Escobar Chief Complaint: Hyperglycemia, elevated troponin History of Present Illness: 65-year-old female with past medical history of hypertension, history of CKD, diabetes mellitus, admitted for DKA with positive covid pneumonia. She was noted with elevated creatinine of 2.6. She has been on gentle IVF. Glucose level is improving. Her creatinine has improved to normal of 0.9 now. She had transient hypokalemia which has corrected. Renal was consulted for azotemia Allergies latex Allergy (Intermediate, Verified 01/16/13 12:38) unknown Home Medications: Pravastatin Sodium [Pravachol] 40 mg PO DAILY 01/14/13 Benzonatate [Tessalon Perle*] 200 mg PO TID PRN #90 cap 10/13/20 Famotidine [Pepcid*] 20 mg PO DAILY #30 tab 10/13/20 Apixaban [Eliquis] 5 mg PO SEECOM #75 tablet 10/20/20 Ascorbic Acid [Vitamin C with Shanna Hips] 500 mg PO TID #90 tab.chew 10/20/20 Cholecalciferol (Vitamin D3) [Vitamin D3] 2,000 unit PO DAILY #30 capsule 10/20/20 Insulin Glargine Human [Lantus*] 15 unit SQ BID #1 vial 10/20/20 Insulin Regular, Human [Novolin R] See Protocol SQ ACHS #1 vial 10/20/20 Thiamine HCl [Vitamin B-1*] 100 mg PO BID #60 tablet 10/20/20 Zinc Sulfate [Zinc Sulfate*] 220 mg PO DAILY #30 cap 10/20/20 levoFLOXacin [Levaquin*] 750 mg PO DAILY #7 tab 10/20/20 predniSONE [Deltasone*] 10 mg PO SEECOM #21 tab 10/20/20 - Past Medical/Surgical History Diabetic: Yes -: Hypertension, -: diabetes mellitus, -: hyperlipidemia -: none Psychosocial/ Personal History: 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, 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 with family - Family History Mother Medical History: Diabetes - Social History Smoking Status: Never smoker Alcohol use: No CD- Drugs: No Caffeine use: Yes Place of Residence: Home Review of Systems 10-point ROS is otherwise unremarkable Physical Examination Temp Pulse Resp BP Pulse Ox 97.2 F 103 H 28 H 110/67 90 L 10/20/20 16:00 10/20/20 16:00 10/20/20 16:00 10/20/20 15:20 10/20/20 16:00 General: Alert, In no apparent distress, Oriented x3 HEENT: Atraumatic, Normocephalic Neck: Supple, 2+ carotid pulse no bruit Respiratory: Normal air movement, Diminished Cardiovascular: Normal pulses, Regular rate/rhythm, Normal S1 S2 Gastrointestinal: Normal bowel sounds, Soft and benign, Non-distended Musculoskeletal: No clubbing, No swelling Integumentary: No rashes, No breakdown, No significant lesion Neurological: Normal gait, Normal speech, Normal strength at 5/5 x4 extr - Problems (1) ARF (acute renal failure) Current Visit: No Status: Acute (2) COVID-19 virus infection Current Visit: No Status: Acute (3) DKA, type 1 Current Visit: No Status: Acute (4) HTN (hypertension) Current Visit: No Status: Acute (5) Hyperkalemia Current Visit: No Status: Acute (6) Hyponatremia Current Visit: No Status: Acute Physician Review Additional Text: Plan -creatinine improving - s/p recovered to normal range Continue current management Avoid fluid overload Continued to correct potassium and follow Will follow p.r.n.
[2020-10-20] MEDS: ATORVASTATIN 10 MG TAB PO SCH (21:29)
[2020-10-21 04:02] LABS: RBC Red Blood Cell Count 4.33 M/uL (3.86-4.86)
[2020-10-21 04:08] LABS: Absolute Lymphocytes (CBC) 1.3 K/uL (0.7-4.9); Basophils % 0.3 % (0-1.3); Hematocrit 34.8 % (36.0-45.0); Lymphocytes % 12.9 % (15.3-44.8); MPV 11.3 fL (7.6-11.3); RBC Red Blood Cell Count 4.43 M/uL (3.86-4.86)
[2020-10-21 04:12] LABS: C-Reactive Protein 16.3 mg/L (<3.00); Ferritin 414.7 ng/mL (8-388)
[2020-10-21 04:33] LABS: Folic Acid, (Folate) 10.7 ng/mL (3.1-17.5); Magnesium 1.9 mg/dL (1.8-2.4); Phosphorus 1.7 mg/dL (2.5-4.9)
--- NOTE | 2020-10-21 05:56 | P.PN ---
Subjective Date of Service: 10/21/20 Primary Care Provider: Dr. Escobar Chief Complaint: Hyperglycemia, elevated troponin Subjective: No new changes Physical Examination - Vital Signs Temperature: 98.6 F Blood Pressure: 106/58 Pulse: 82 Respirations: 20 Pulse Ox (%): 94 - Physical Exam General: Alert, In no apparent distress, Oriented x3 HEENT: Atraumatic, Normocephalic, PERRLA Respiratory: Clear to auscultation bilaterally, Normal air movement Cardiovascular: Normal pulses, Regular rate/rhythm, Normal S1 S2 Gastrointestinal: Normal bowel sounds, Soft and benign Neurological: Normal speech, Normal strength at 5/5 x4 extr Assessment And Plan - Current Problems (Diagnosis) (1) ARF (acute renal failure) Current Visit: No Status: Acute (2) COVID-19 virus infection Current Visit: No Status: Acute (3) DKA, type 1 Current Visit: No Status: Acute (4) HTN (hypertension) Current Visit: No Status: Acute (5) Hyperkalemia Current Visit: No Status: Acute (6) Hyponatremia Current Visit: No Status: Acute Physician Review Additional Text: Assessment Hypoxia secondary to pulmonary emboli in to segmental right upper lobe pulmonary arteries and bilateral pneumonia complicated with COVID 19 Diabetes mellitus type 2 insulin-dependent with hyperglycemia and hypoglycemia Acute kidney injury possible underlying CKD with hyperkalemia Mildly elevated troponin level secondary to above Hypertension Hyperlipidemia Plan creatinine improved -will follow peripherally
[2020-10-21] MEDS: VITAMIN D 1000 UNIT TAB PO SCH (08:33)
[2020-10-21] MEDS: ZINC SULFATE 220 MG CAP PO SCH (08:33)
[2020-10-21] MEDS: ASCORBIC ACID 500 MG TABLET PO SCH ×2 (08:35→21:00)
[2020-10-21] MEDS: FAMOTIDINE 20 MG TAB PO SCH (08:35)
[2020-10-21] MEDS: levoFLOXacin 750 MG TAB PO SCH (08:36)
[2020-10-21] MEDS: THIAMINE HCL 100 MG TABLET PO SCH ×2 (08:36→21:00)
[2020-10-21] MEDS: predniSONE 20 MG TAB PO SCH ×2 (08:36→20:59)
[2020-10-21] MEDS: APIXABAN 5 MG TABLET PO SCH ×2 (08:37→20:59)
[2020-10-21] MEDS: INSULIN GLARGINE 100 UNITS/ML SQ SCH ×2 (08:37→21:22)
[2020-10-21] MEDS: INSULIN -REGULAR HUMAN 50 UNIT/0.5 ML ML SQ SCH ×4 (08:38→21:22)
--- NOTE | 2020-10-21 09:09 | ECHO ---
HEIGHT: 5 ft 1 in WEIGHT: 153 lb 12.8 oz DATE OF STUDY: 10/20/[address]: Bryan White DO 2-DIMENSIONAL: YES M.MODE: YES DOPPLER: YES COLOR FLOW: YES TDS: NO PORTABLE: NO DEFINITY: NO BUBBLE STUDY: NO DIAGNOSIS: PULMONARY EMBOLUS, COVID, PNEUMONIA CARDIAC HISTORY: CATHERIZATION: NO SURGERY: NO PROSTHETIC VALVE: NO PACEMAKER: NO MEASUREMENTS (cm) DIASTOLIC (NORMALS) SYSTOLIC (NORMALS) IVSd 1.1 (0.6-1.2) LA Diam 2.2 (1.9-4.0) LVEF 55-60% LVIDd 3.6 (3.5-5.7) LVIDs 2..2 (2.0-3.5) %FS 39% LVPWd 1.1 (0.6-1.2) Ao Diam 2.8 (2.0-3.7) 2 DIMENSIONAL ASSESSMENT: RIGHT ATRIUM: NORMAL LEFT ATRIUM: NORMAL RIGHT VENTRICLE: NORMAL LEFT VENTRICLE: NORMAL TRICUSPID VALVE: NORMAL MITRAL VALVE: NORMAL PULMONIC VALVE: AORTIC VALVE: NORMAL PERICARDIAL EFFUSION: NONE AORTIC ROOT: NORMAL LEFT VENTRICULAR WALL MOTION: NORMAL DOPPLER/COLOR FLOW: SEE BELOW. COMMENTS: NORMAL LEFT VENTRICULAR EJECTION FRACTION 55-60% WITH NORMAL WALL MOTION. MILD PULMONARY INSUFFICIENCY. GRADE I DIASTOLIC DYSFUNCTION. TECHNOLOGIST: Kar WADE
[2020-10-21] MEDS: SOD FERRIC GLUC COMPLX/SUCROSE 125 MG in NA CHLORIDE 0.9% 100 ML IV SCH (10:43)
--- NOTE | 2020-10-21 12:51 | P.PN ---
Subjective Date of Service: 10/21/20 Chief Complaint: Hyperglycemia, elevated troponin Subjective: No new changes, Improving, Doing well Patient reports marked improvements since admission, although she still feels weak. She is able to talk in complete sentences. She is ambulating well, but is easily fatigued. She reports no dizziness. Saturating 94% on 2L NC. Review of Systems 10-point ROS is otherwise unremarkable General: Weakness, As per HPI Eyes: Unremarkable ENT: Unremarkable Respiratory: Shortness of Breath, SOB with Excertion, As per HPI Cardiovascular: Unremarkable Gastrointestinal: Unremarkable Genitourinary: Unremarkable Musculoskeletal: Unremarkable Integumentary: Unremarkable Neurological: Unremarkable Lymphatics: Unremarkable Physical Examination - Vital Signs Temperature: 98 F Blood Pressure: 118/67 Pulse: 109 Respirations: 28 Pulse Ox (%): 95 - Physical Exam General: Alert, In no apparent distress, Oriented x3, Cooperative HEENT: Atraumatic, Normocephalic, PERRLA, Mucous membr. moist/pink, EOMI Neck: Supple, 2+ carotid pulse no bruit, JVD not distended, No Thyromegaly, No LAD Respiratory: Clear to auscultation bilaterally, Diminished Cardiovascular: No edema, Normal pulses, Regular rate/rhythm, Normal S1 S2, No gallops, No rubs, No murmurs, Other (tachycardic) Capillary refill: <2 Seconds Gastrointestinal: Normal bowel sounds, Hypoactive, Soft and benign, No ascites, No tenderness, No masses, No rebound, No guarding Musculoskeletal: No clubbing, No swelling, No contractures, No erythema, No tenderness, No warmth Integumentary: No rashes, No breakdown, No significant lesion, No tenderness/swelling, No erythema, No warmth, No cyanosis Neurological: Normal gait, Normal speech, Normal strength at 5/5 x4 extr, Normal affect Lymphatics: No axilla or inguinal lymphadenopathy Assessment & Plan - Plan COVID 19 Pneumonia complicated by pulmonary embolism: Patient reports improvement in breathing. Patient will continue Levaquin, prednisone and Eliquis. Patient is ambulating with mild fatigue. Patient tachycardic on examination so will restart IVF hydration. Diabetes mellitus type 2 insulin-dependent with hyperglycemia and hypoglycemia: Patient now on Lantus 10 units subcu twice daily. Her insulin pump remains off. Hemoglobin A1c elevated. Will need to monitor and adjust medication. Sliding scale in place. Acute kidney injury possible underlying CKD with hyperkalemia: Nephrology following. GFR improving. Ordered morning cortisol, renin and aldosterone levels. Mildly elevated troponin level secondary to above: Elevated troponin likely related to pulmonary embolism. ECHO was unremarkable. Continue to monitor. Hypertension: Continue to hold blood pressure medication. Will monitor closely. Will consider restarting medication if blood pressure remains normal. Hyperlipidemia: Continue medication Discharge Plan: Home Plan to discharge in: 24 Hours - Advance Directives Does patient have a Living Will: No Does patient have a Durable POA for Healthcare: No - Code Status/Comfort Care Code Status Assessed: Yes Code Status: Full Code Critical Care: No Time Spent Managing PTS Care (In Minutes): 55
[2020-10-21] MEDS: ATORVASTATIN 10 MG TAB PO SCH (21:00)
[2020-10-22 06:40] LABS: Absolute Lymphocytes (CBC) 1.6 K/uL (0.7-4.9); Basophils % 0.5 % (0-1.3); Lymphocytes % 18.5 % (15.3-44.8); MPV 10.4 fL (7.6-11.3); RBC Red Blood Cell Count 4.38 M/uL (3.86-4.86)
[2020-10-22 06:49] LABS: BUN Blood Urea Nitrogen 15 mg/dL (7-18); Bicarbonate 31 mmol/L (21-32); Glucose Level 191 mg/dL (74-106); Magnesium 1.9 mg/dL (1.8-2.4); Sodium Level 134 mmol/L (136-145)
[2020-10-22 06:51] VITALS: BP 120/64; TEMP 98.7
[2020-10-22 06:58] LABS: C-Reactive Protein 14.4 mg/L (<3.00)
[2020-10-22] MEDS: VITAMIN D 1000 UNIT TAB PO SCH (09:07)
[2020-10-22] MEDS: ZINC SULFATE 220 MG CAP PO SCH (09:07)
[2020-10-22] MEDS: ASCORBIC ACID 500 MG TABLET PO SCH (09:07)
[2020-10-22] MEDS: APIXABAN 5 MG TABLET PO SCH (09:08)
[2020-10-22] MEDS: predniSONE 20 MG TAB PO SCH (09:08)
[2020-10-22] MEDS: levoFLOXacin 750 MG TAB PO SCH (09:08)
[2020-10-22] MEDS: FAMOTIDINE 20 MG TAB PO SCH (09:08)
[2020-10-22] MEDS: THIAMINE HCL 100 MG TABLET PO SCH (09:08)
[2020-10-22] MEDS: INSULIN GLARGINE 100 UNITS/ML SQ SCH (09:09)
[2020-10-22] MEDS: SOD FERRIC GLUC COMPLX/SUCROSE 125 MG in NA CHLORIDE 0.9% 100 ML IV SCH (09:13)
[2020-10-22] MEDS: INSULIN -REGULAR HUMAN 50 UNIT/0.5 ML ML SQ SCH ×2 (09:16→11:57)
--- NOTE | 2020-10-22 09:33 | P.PN ---
Subjective Date of Service: 10/22/20 Primary Care Provider: Dr. Escobar Chief Complaint: Hyperglycemia, elevated troponin Subjective: No new changes Physical Examination - Vital Signs Temperature: 98.7 F Blood Pressure: 120/64 Pulse: 78 Respirations: 16 Pulse Ox (%): 94 - Physical Exam General: Alert, Oriented x3 HEENT: Atraumatic, Normocephalic Neck: Supple Respiratory: Clear to auscultation bilaterally Cardiovascular: Regular rate/rhythm, Normal S1 S2 Gastrointestinal: Soft and benign Musculoskeletal: No swelling Neurological: Normal speech, Cranial nerves 3-12 intact - Studies Microbiology Data (last 24 hrs): 10/16/20 18:35 Blood - Blood Aerobic Blood Culture - Final No growth in 5 days. 10/16/20 18:35 Blood - Blood Anaerobic Blood Culture - Final No growth in 5 days. 10/16/20 18:45 Blood - Blood Aerobic Blood Culture - Final No growth in 5 days. 10/16/20 18:45 Blood - Blood Anaerobic Blood Culture - Final No growth in 5 days. Assessment And Plan Physician Review Additional Text: Assessment Hypoxia secondary to pulmonary emboli in to segmental right upper lobe pulmonary arteries and bilateral pneumonia complicated with COVID 19 Diabetes mellitus type 2 insulin-dependent with hyperglycemia and hypoglycemia Acute kidney injury possible underlying CKD with hyperkalemia Mildly elevated troponin level secondary to above Hypertension Hyperlipidemia Plan Sodium is stable at 140. Creatinine is stable at 0.70. Potassium is within normal limits. we will monitor electrolytes and creatinine closely.
[2020-10-22 10:47] VITALS: O2SAT 95
--- NOTE | 2020-11-11 03:13 | P.DS ---
Discharge Date: 10/22/20 Primary Care Provider: Dr. Escobar Disposition: ROUTINE DISCHARGE Discharge Condition: GOOD Reason for Admission: Hyperglycemia, elevated troponin Brief History of Present Illness: 65-year-old Afro-[place] female with history of hypertension, hyperlipidemia, diabetes mellitus type 2-insulin dependent presents emergency department for hyperglycemia, weakness, dizziness. Patient evaluated in the emergency de partment found to be hyperglycemic blood sugar 582 not in DKA at this time %period% creatinine 2.0 to recent admission for DKA with acute renal failure which had improved with a creatinine of 1.68 at discharge creatinine 2.0 to today. Initial troponin 0.06 patient recently tested positive for Villalta virus on 10/12/2020. CRP level 24.2 patient not having any problems with her breathing at this time. Will admit under observation for hyperglycemia, mildly elevated troponin. Hospital Course: Patient is clinically doing well. Patient's pneumonia is improved. Patient has a pulmonary embolism and is on anticoagulation. At this time, patient is stable for discharge home with outpatient follow up. Vital Signs/Physical Exam: Temp Pulse Resp BP Pulse Ox 98.7 F 78 16 120/64 94 10/22/20 10:07 10/22/20 10:07 10/22/20 10:07 10/22/20 10:07 10/22/20 10:07 General: Alert, In no apparent distress, Oriented x3 Laboratory Data at Discharge: WBC 8.70 K/uL (4.3-10.9) D 10/22/20 00:13 Hgb 11.2 g/dL (12.0-15.0) L 10/22/20 00:13 Hct 34.0 % (36.0-45.0) L 10/22/20 00:13 Plt Count 278 K/uL (152-406) 10/22/20 00:13 PT 9.8 SECONDS (9.5-12.5) 10/16/20 16:08 INR 0.85 10/16/20 16:08 Sodium 134 mmol/L (136-145) L 10/22/20 06:22 Potassium 4.0 mmol/L (3.5-5.1) 10/22/20 06:22 BUN 15 mg/dL (7-18) 10/22/20 06:22 Creatinine 0.72 mg/dL (0.55-1.3) 10/22/20 06:22 Glucose 191 mg/dL (74-106) H 10/22/20 06:22 Phosphorus 1.7 mg/dL (2.5-4.9) L 10/21/20 03:26 Magnesium 1.9 mg/dL (1.8-2.4) 10/22/20 06:22 Total Bilirubin 0.5 mg/dL (0.2-1.0) 10/16/20 16:08 AST 36 U/L (15-37) 10/16/20 16:08 ALT 56 U/L (12-78) 10/16/20 16:08 Alkaline Phosphatase 74 U/L (45-117) 10/16/20 16:08 Troponin I < 0.02 ng/mL (0.0-0.045) 10/20/20 03:51 Home Medications: Pravastatin Sodium [Pravachol] 40 mg PO DAILY 01/14/13 Benzonatate [Tessalon Perle*] 200 mg PO TID PRN #90 cap 10/13/20 Famotidine [Pepcid*] 20 mg PO DAILY #30 tab 10/13/20 Apixaban [Eliquis] 5 mg PO SEECOM #75 tablet 10/20/20 Ascorbic Acid [Vitamin C with Shanna Hips] 500 mg PO TID #90 tab.chew 10/20/20 Cholecalciferol (Vitamin D3) [Vitamin D3] 2,000 unit PO DAILY #30 capsule 10/20/20 Insulin Regular, Human [Novolin R] See Protocol SQ ACHS #1 vial 10/20/20 Thiamine HCl [Vitamin B-1*] 100 mg PO BID #60 tablet 10/20/20 Zinc Sulfate [Zinc Sulfate*] 220 mg PO DAILY #30 cap 10/20/20 levoFLOXacin [Levaquin*] 750 mg PO DAILY #7 tab 10/20/20 Hydrocortisone [Cortef*] 10 mg PO BID #90 tab 10/22/20 Insulin Glargine,Hum.rec.anlog [Basaglar Kwikpen U-100] 20 unit SQ DAILY #2 insuln.pen 10/22/20 New Medications: Insulin Glargine,Hum.rec.anlog [Basaglar Kwikpen U-100] 20 unit SQ DAILY #2 insuln.pen Hydrocortisone [Cortef*] 10 mg PO BID #90 tab Apixaban [Eliquis] 5 mg PO SEECOM #75 tablet levoFLOXacin [Levaquin*] 750 mg PO DAILY #7 tab Insulin Regular, Human [Novolin R] See Protocol SQ ACHS #1 vial Thiamine HCl [Vitamin B-1*] 100 mg PO BID #60 tablet Ascorbic Acid [Vitamin C with Shanna Hips] 500 mg PO TID #90 tab.chew Cholecalciferol (Vitamin D3) [Vitamin D3] 2,000 unit PO DAILY #30 capsule Zinc Sulfate [Zinc Sulfate*] 220 mg PO DAILY #30 cap Physician Discharge Instructions: Recommend follow up with PCP in 1 week to follow up this hospitalization. Patient presented with fatigue, weakness and elevated blood sugar. Patient with diabetes mellitus type 2 insulin dependent. Patient also found to have pneumonia. Patient recently tested positive for COVID 19 on 10/12/2020. Patient was admitted for further evaluation and treatment. Patient with history of insulin pump. This was turned off. Patient required IV fluids due to dehydration and acute renal injury. Blood sugars were better controlled. Patient then required oxygen due to hypoxia. Elevated heart rate was noted. Troponin slightly elevated as well. Patient was further evaluated and found to have pulmonary emboli in to segmental right upper lobe pulmonary arteries. Bilateral pneumonia was also present. This was further complicated with COVID 19. Patient has done well. Blood sugars better controlled. Renal function back to baseline. At discharge she is without significant shortness of breath. Vital signs stable. Patient still requires oxygen at discharge. At discharge for her pulmonary emboli, bilateral pneumonia and COVID 19 infection, the patient will continue with home oxygen to maintain sats above 93%. Patient will continue with 2 L per nasal cannula. At discharge the patient will continue with Eliquis 10 mg twice daily for 7 days then 5 mg twice daily follow up pulmonary embolism. At discharge the patient will continue with Levaquin 750 mg 1 pill daily for 7 days. The patient will also continue with prednisone 10 mg 1 pill twice daily for 7 days then 1 pill once daily for 7 days. The patient will continue with Tessalon Perles 3 times a day as needed for cough. Patient will continue with vitamin supplementation including vitamin-C 500 mg 3 times a day, vitamin-D 2000 units daily, thiamine 100 mg 1 pill twice daily, and zinc 220 mg daily. Recommend to continue proning, hand washing, social distancing and face mask use. Patient will continue with CDC guidelines on COVID 19 education and isolation. Patient remains isolative for at least 10 days. Recommend follow up with pulmonology in 1 week to follow up this hospitalization. Pulmonology will further adjust medication and oxygen. Education on pulmonary embolism, Eliquis, and pneumonia will also be provided. Pulmonology will wean off oxygen. Pulmonology will continue to adjust medication including Eliquis. Patient with diabetes mellitus type 2 insulin-dependent with hyperglycemia. He moglobin A1c is 10. Patient needs better control over time. Patient with history of insulin pump. This has been turned off. At discharge she will continue with Lantus 15 units subcu twice daily. Patient will also be provided insulin regular to be use as a mild sliding scale. Recommend to maintain blood sugar less than 140 fasting and less than 200 after meals. Further adjustment can be done by her PCP. Recommend recheck lab-A1c in 3 months to monitor her progress. Patient may require endocrinology evaluation as an outpatient to further address and treat. Patient with acute renal injury. Patient received IV fluids. This appears resolved. Renal ultrasound shows chronic renal disease. Patient with stage II disease. Recommend no further use of nonsteroidal anti-inflammatories. Future medications may need to be renally dose. Recommend follow up with the weeks to follow up this hospitalization. Recommend to recheck lab-BMP in 1-2 weeks to monitor her progress. Patient with hypertension. Medications were held during the course of her stay due to low blood pressure. At discharge blood pressure remained stable without medication. Will recommend to discontinue valsartan hydrochlorothiazide at discharge. Patient may continue to monitor blood pressures daily. Recommend to maintain blood pressure less than 130/80. If blood pressures remain above 140/90 she is to contact her PCP for further recommendation. Need to consider other medications if medication is required. Patient with GERD. At discharge she will continue with Pepcid 20 mg daily. Patient with hyperlipidemia. At discharge patient will continue with pravastatin 40 mg daily. Diet: ADA Activity: Fall precautions Followup: Donald Escobar MD [Primary Care Provider] - (call to schedule appointment) Time spent managing pt's care (in minutes): 35
== END 2020-10-22 12:44 | disposition home or self-care (01) | DRG 177 ==
LOC: ER 14:42 → ERHOLD 19:07 → 4TH 23:21 → OBSVTOIN 10-17 15:33
PROVIDERS: ADMIT Family Medicine; ATTEND Hospitalist
DX: U07.1 COVID-19 (principal); J12.82 Pneumonia due to coronavirus disease 2019; I26.99 Other pulmonary embolism without acute cor pulmonale; N17.9 Acute kidney failure, unspecified; E87.1 Hypo-osmolality and hyponatremia; I12.9 Hypertensive chronic kidney disease with stage 1 through stage 4 chronic kidney disease, or unspecified chronic kidney disease; N18.9 Chronic kidney disease, unspecified; E11.22 Type 2 diabetes mellitus with diabetic chronic kidney disease; E11.649 Type 2 diabetes mellitus with hypoglycemia without coma; E11.65 Type 2 diabetes mellitus with hyperglycemia; E87.5 Hyperkalemia; E87.6 Hypokalemia; E86.0 Dehydration; E78.5 Hyperlipidemia, unspecified; R00.0 Tachycardia, unspecified; R77.8 Other specified abnormalities of plasma proteins; Z79.4 Long term (current) use of insulin; Z79.82 Long term (current) use of aspirin; Z79.899 Other long term (current) drug therapy; Z91.040 Latex allergy status; Z79.52 Long term (current) use of systemic steroids
CPT/HCPCS: 36415; 70450; 71045; 71275; 76770; 80048; 80076; 81003; 81015; 82088; 82533; 82607; 82728; 82746; 82947; 83036; 83540; 83605; 83735; 83880; 84100; 84145; 84244; 84439; 84443; 84484; 85025; 85044; 85610; 86140; 87040; 93306; 96361; 96365; 96366; 96375; 99285; G0378; J0456; J0696; J1644; J1815; J1940; J2405; J2916; J2920; J7030; J7040; J7050; J7512; J7799; Q9967

== ENCOUNTER 2023-03-12 07:22 | Emergency (ER) | payer OTHER ==
--- OUTSIDE RECORDS SUMMARY | 2023-03-12 07:26 | XMS REPORT | Continuity of Care Document ---
:1955 Author Organization [facility] t Address [address] [place] [address] Care Team Providers Name Role Phone Buzz Vo Attending Clinician Unavailable AFSHAN MAURICIO Attending Clinician Unavailable Afshan Mauricio MD Attending Clinician Payers Payer Name Policy Type Policy Number Effective Date Expiration Date S [facility] [place] [place] MEDICARE PART A [id number] 2019 \T\ B 00:00:00 Problems This patient has no known problems. Allergies, Adverse Reactions, Alerts Allergy Allergy Status Severity Reaction(s) Onset Inactive Treating Comm ents Source Name Type Date Date Clinician [facility] Active ITCHING 2009-08 [facility] 0-05 ity of 00:00: [address] [facility] [employer] Active CONTACT DERM 2008- Univ ers INGREDI 2-06 ity of 00:00: [address] Medications This patient has no known medications. Procedures This patient has no known procedures. Encounters Start End Encounter Admission Attending Care Care Encounter Source Date/Time Date/Time Type Type Clinicians Facility Department ID 2022-10-18 Outpatient SONY Vo [facility] [id number] Common 14:14:01 Buzz [id number] [facility] 2020-08-19 2020-08-19 Outpatient R MITCH MAURICIO NDELVIS [id number] [facility] 10:30:00 10:30:00 AFSHAN ity [facility] 2020-06-03 2020-06-03 Refill MITCH Mauricio [id number] 00:00:00 00:00:00 [facility] [id number] [place] [id number] Profess [id number] formerly [facility] [address] [facility] 2020-04-15 2020-04-15 [facility] [id number] 14:01:18 14:52:19 Visit [facility] [id number] [place] [id number] Profkamaljit [id number] [address] 2020-04-15 2020-04-15 Outpatient R HANG [facility] [id number] [facility] 14:30:00 14:30:00 [facility] 2020-01-09 2020-01-09 Outpatient R HANG [facility] [id number] [facility] 14:00:00 14:00:00 [facility] Results This patient has no known results.
--- NOTE | 2023-03-12 08:10 | ER ---
Nurse's Notes [facility] Name: Ana Laura Davis Age: 67 yrs Sex: Female : 1955 Arrival Date: 03/12/2023 Time: 07:22 Bed 13 Private MD: Diagnosis: Allergic contact dermatitis due to plants, except food Presentation: 03/12 07:33 Chief complaint: Poison chloe exposure 3 days ago, c/o itchy rash on face, chest, and hb arms. Coronavirus screen: At this time, the client does not indicate any symptoms associated with coronavirus-19. Ebola Screen: No symptoms or risks identified at this time. Initial Sepsis Screen: Does the patient meet any 2 criteria? No. Patient's initial sepsis screen is negative. Does the patient have a suspected source of infection? No. Patient's initial sepsis screen is negative. Risk Assessment: Do you want to hurt yourself or someone else? Patient reports no desire to harm self or others. Onset of symptoms was March 09, 2023. 07:33 Method Of Arrival: Ambulatory hb 07:33 Acuity: [place] 4 hb Historical: - Allergies: 07:35 Latex, Natural Rubber; hb - Home Meds: 07:35 unknown HTN med [Active]; unknown insulin [Active]; unknown thyroid med [Active]; hb - PMHx: 07:35 Diabetes - IDDM; High Cholesterol; Hypertension; hb - PSHx: 07:35 None; hb - Immunization history:: Adult Immunizations up to date. - Social history:: Smoking status: Patient denies any tobacco usage or history of. - Family history:: not pertinent. Screenin:36 [facility] ED Fall Risk Assessment (Adult) Score/Fall Risk Level 0 - 2 = Low Risk hb Oriented to surroundings, Maintained a safe environment. [facility] ED Fall Risk Assessment (Adult) History of falling in the last 3 months, including since admission. Abuse screen: Denies threats or abuse. Denies injuries from another. Nutritional screening: No deficits noted. Tuberculosis screening: No symptoms or risk factors identified. Assessment: 07:41 General: Appears in no apparent distress. comfortable, Behavior is calm, cooperative, ko1 appropriate for age. Pain: Denies pain. Neuro: No deficits noted. Cardiovascular: No deficits noted. Respiratory: No deficits noted. GI: No deficits noted. : No deficits noted. EENT: No deficits noted. Derm: No deficits noted. Musculoskeletal: No deficits noted. 08:20 Reassessment: Patient appears in no apparent distress at this time. Patient and/or hb family updated on plan of care and expected duration. Pain level reassessed. Patient is alert, oriented x 3, equal unlabored respirations, skin warm/dry/pink. Vital Signs: 07:33 BP 130 / 85; Pulse 88; Resp 16; Temp 98.2; Pulse Ox 100% on R/A; Weight 84.82 kg; hb Height 5 ft. 1 in. ; Pain 0/10; 08:20 BP 128 / 78; Pulse 82; Resp 15; Pulse Ox 99% on R/A; hb 07:33 Body Mass Index 35.33 (84.82 kg, 154.94 cm) hb 07:33 Pain Scale: Adult hb ED Course: 07:25 Patient arrived in ED. ts1 07:30 Abdiel Eden MD is Attending Physician. [facility] 07:30 Corina Mcdonald, RN is Primary Nurse. ko1 07:35 Triage completed. hb 07:35 Arm band placed on. hb 07:36 Patient has correct armband on for positive identification. hb 07:41 Provided Education on: na. ko1 08:20 No provider procedures requiring assistance completed. Patient did not have IV access hb during this emergency room visit. Administered Medications: 08:03 Drug: predniSONE PO 60 mg Route: PO; ko1 08:21 Follow up: Response: Medication administered at discharge. hb 08:03 Drug: Famotidine PO 40 mg Route: PO; ko1 08:21 Follow up: Response: Medication administered at discharge. hb 08:03 Drug: diphenhydrAMINE PO 25 mg Route: PO; ko1 08:21 Follow up: Response: Medication administered at discharge. hb Medication: 07:36 VIS not applicable for this client. hb Outcome: 08:09 Discharge ordered by . [facility] 08:20 Discharged to home ambulatory. hb 08:20 Condition: stable 08:20 Discharge instructions given to patient, Instructed on discharge instructions, follow up and referral plans. medication usage, Demonstrated understanding of instructions, follow-up care, medications, Prescriptions given X 3. 08:22 Patient left the ED. hb Signatures: Abdiel Eden MD MD cha Baxter, Heather, RN RN Corina Mcclellan RN RN ko1 Mireya Kelley, PAS PAS ts1
--- NOTE | 2023-03-12 08:10 | EDPHYS ---
Physician Documentation [facility] Name: Ana Laura Davis Age: 67 yrs Sex: Female : 1955 Arrival Date: 03/12/2023 Time: 07:22 Bed 13 Private MD: ED Physician Abdiel Eden HPI: 03/12 08:04 This 67 yrs old Black Female presents to ER via Ambulatory with complaints of poison matheus nenita. 08:04 The patient's rash thought to be caused by Contact allergy. The rash is located on the matheus body diffusely. The rash can be described as erythematous, raised. Onset: The symptoms/episode began/occurred 3 day(s) ago. Associated signs and symptoms: Pertinent positives: burning sensation, Pertinent negatives: swelling of lips, swelling of throat, swelling of tongue. Severity of symptoms: At their worst the symptoms were moderate in the emergency department the symptoms have resolved. Treatment given at home: Benadryl. The patient has not experienced similar symptoms in the past. Historical: - Allergies: 07:35 Latex, Natural Rubber; hb - Home Meds: 07:35 unknown HTN med [Active]; unknown insulin [Active]; unknown thyroid med [Active]; hb - PMHx: 07:35 Diabetes - IDDM; High Cholesterol; Hypertension; hb - PSHx: 07:35 None; hb - Immunization history:: Adult Immunizations up to date. - Social history:: Smoking status: Patient denies any tobacco usage or history of. - Family history:: not pertinent. ROS: 08:04 Constitutional: Negative for fever, chills, and weight loss, Eyes: Negative for injury, matheus pain, redness, and discharge, ENT: Negative for injury, pain, and discharge, Neck: Negative for injury, pain, and swelling, Cardiovascular: Negative for chest pain, palpitations, and edema, Respiratory: Negative for shortness of breath, cough, wheezing, and pleuritic chest pain, Abdomen/GI: Negative for abdominal pain, nausea, vomiting, diarrhea, and constipation, Back: Negative for injury and pain, : Negative for injury, bleeding, discharge, and swelling, MS/Extremity: Negative for injury and deformity, Neuro: Negative for headache, weakness, numbness, tingling, and seizure, Psych: Negative for depression, anxiety, suicide ideation, homicidal ideation, and hallucinations, Allergy/Immunology: Negative for hives, rash, and allergies, Endocrine: Negative for neck swelling, polydipsia, polyuria, polyphagia, and marked weight changes, Hematologic/Lymphatic: Negative for swollen nodes, abnormal bleeding, and unusual bruising. 08:04 Skin: Positive for erythema, rash. Exam: 08:04 Constitutional: This is a well developed, well nourished patient who is awake, alert, matheus and in no acute distress. Head/Face: Normocephalic, atraumatic. Eyes: Pupils equal round and reactive to light, extra-ocular motions intact. Lids and lashes normal. Conjunctiva and sclera are non-icteric and not injected. Cornea within normal limits. Periorbital areas with no swelling, redness, or edema. ENT: Nares patent. No nasal discharge, no septal abnormalities noted. Tympanic membranes are normal and external auditory canals are clear. Oropharynx with no redness, swelling, or masses, exudates, or evidence of obstruction, uvula midline. Mucous membranes moist. Neck: Trachea midline, no thyromegaly or masses palpated, and no cervical lymphadenopathy. Supple, full range of motion without nuchal rigidity, or vertebral point tenderness. No Meningismus. Chest/axilla: Normal chest wall appearance and motion. Nontender with no deformity. No lesions are appreciated. Cardiovascular: Regular rate and rhythm with a normal S1 and S2. No gallops, murmurs, or rubs. Normal PMI, no JVD. No pulse deficits. Respiratory: Lungs have equal breath sounds bilaterally, clear to auscultation and percussion. No rales, rhonchi or wheezes noted. No increased work of breathing, no retractions or nasal flaring. Abdomen/GI: Soft, non-tender, with normal bowel sounds. No distension or tympany. No guarding or rebound. No evidence of tenderness throughout. Back: No spinal tenderness. No costovertebral tenderness. Full range of motion. Female : Normal external genitalia. MS/ Extremity: Pulses equal, no cyanosis. Neurovascular intact. Full, normal range of motion. Neuro: Awake and alert, GCS 15, oriented to person, place, time, and situation. Cranial nerves II-XII grossly intact. Motor strength 5/5 in all extremities. Sensory grossly intact. Cerebellar exam normal. Normal gait. Psych: Awake, alert, with orientation to person, place and time. Behavior, mood, and affect are within normal limits. 08:04 Skin: Appearance: Color: erythematous, Temperature: normal temperature, Moisture: normal moisture, petechiae, not noted, ecchymosis, not noted, flushing, not noted, diaphoresis is not appreciated. Vital Signs: 07:33 BP 130 / 85; Pulse 88; Resp 16; Temp 98.2; Pulse Ox 100% on R/A; Weight 84.82 kg; hb Height 5 ft. 1 in. ; Pain 0/10; 08:20 BP 128 / 78; Pulse 82; Resp 15; Pulse Ox 99% on R/A; hb 07:33 Body Mass Index 35.33 (84.82 kg, 154.94 cm) hb 07:33 Pain Scale: Adult hb MDM: 07:30 Patient medically screened. matheus 08:07 Differential diagnosis: impetigo, allergic reaction. Data reviewed: vital signs, nurses matheus notes. Consideration of Admission/Observation Escalation of care including admission/observation considered. I considered the following discharge prescriptions or medication management in the emergency department Medications were administered in the Emergency Department. See MAR. Historians other than the Patient: PATIENT ONLY. Care significantly affected by the following chronic conditions: Diabetes, Hypertension. Administered Medications: 08:03 Drug: predniSONE PO 60 mg Route: PO; ko1 08:21 Follow up: Response: Medication administered at discharge. hb 08:03 Drug: Famotidine PO 40 mg Route: PO; ko1 08:21 Follow up: Response: Medication administered at discharge. hb 08:03 Drug: diphenhydrAMINE PO 25 mg Route: PO; ko1 08:21 Follow up: Response: Medication administered at discharge. hb Disposition Summary: 03/12/23 08:09 Discharge Ordered Location: Home matheus Problem: new matheus Symptoms: have improved matheus Condition: Stable matheus Diagnosis - Allergic contact dermatitis due to plants, except food matheus Followup: matheus - With: Private Physician - When: 2 - 3 days - Reason: Recheck today's complaints, Continuance of care, Re-evaluation by your physician Discharge Instructions: - Discharge Summary Sheet matheus - Contact Dermatitis matheus - Poison Nenita Dermatitis matheus - Poison Alexander Dermatitis matheus - Rash, Adult matheus - Rash, Adult, [id number] matheus - Poison Nenita Dermatitis, [id number] matheus Forms: - Medication Reconciliation Form [facility] - Thank You Letter matheus - Antibiotic Education matheus - Prescription Opioid Use [facility] - Patient Portal Instructions [facility] Prescriptions: - Benadryl 25 mg Oral Capsule - take 2 capsule by ORAL route every 6 hours As needed; 45 tablet; Refills: 0, [facility] Product Selection Permitted - Pepcid 20 mg Oral Tablet - take 1 tablet by ORAL route every 12 hours for 21 days; 42 tablet; Refills: 0, [facility] Product Selection Permitted - Prednisone 20 mg Oral Tablet - take 2 tablets by ORAL route once daily for 5 days; 10 tablet; Refills: 0, [facility] Product Selection Permitted Signatures: Abdiel Eden MD MD cha Baxter, Heather, RN RN Corina Mcclellan RN RN ko1
[2023-03-12] MEDS ORDERED: DIPHENHYDRAMINE 25 MG TAB/CAP ONE (08:11)
[2023-03-12] MEDS ORDERED: predniSONE 20 MG TAB ONE (08:12)
[2023-03-12] MEDS ORDERED: FAMOTIDINE 20 MG TAB ONE (08:12)
[2023-03-12 08:26] VITALS: TEMP 98.2
[2023-03-12 08:27] VITALS: BP 128/78; O2SAT 99
== END 2023-03-12 08:22 | disposition home or self-care (01) ==
LOC: ER 07:22
DX: L23.7 Allergic contact dermatitis due to plants, except food (principal)
CPT/HCPCS: 99283; J7512

== ENCOUNTER 2023-03-30 16:37 | Inpatient (IN) | payer OTHER ==
--- OUTSIDE RECORDS SUMMARY | 2023-03-30 16:45 | XMS REPORT | Continuity of Care Document ---
:1955 [address] [facility] t Address [address] [place] [address] Care Team Providers Name Role Phone Buzz Vo Attending Clinician Unavailable AFSHAN MAURICIO Attending Clinician Unavailable Afshan Mauricio MD Attending Clinician Payers Payer Name Policy Type Policy Number Effective Date Expiration Date S [facility] MEDICARE PART A [id number] 2019 \T\ B 00:00:00 Problems This patient has no known problems. Allergies, Adverse Reactions, Alerts Allergy Allergy Status Severity Reaction(s) Onset Inactive Treating Comm ents Source Name Type Date Date Clinician [facility] Active ITCHING 2009-08 [facility] 0-05 ity of 00:00: [address] [facility] [employer] Active CONTACT DERM 2008- Univ ers INGREDI 2-06 ity of 00:00: [address] Medications This patient has no known medications. Procedures This patient has no known procedures. Encounters Start End Encounter Admission Attending Care Care Encounter Source Date/Time Date/Time Type Type Clinicians Facility Department ID 2022-10-18 Outpatient Vo, [facility] [id number] Common 14:14:01 Buzz [id number] [facility] 2020-08-19 2020-08-19 Outpatient R MITCH MAURICIO WIELVIS [id number] Univers 10:30:00 10:30:00 AFSHAN ity of [facility] 2020-06-03 2020-06-03 Refill Hang WIELVIS [id number] 00:00:00 [facility]:00:[facility] [id number] [place] [id number] Professio [id number] [address] 2020-04-15 2020-04-15 [facility] [id number] 14:01:18 14:52:19 Visit [facility] [id number] [place] [id number] Profkamaljit [id number] [address] 2020-04-15 2020-04-15 Outpatient R HANG [facility] [id number] Univers 14:30:00 14:30:00 [facility] 2020-01-09 2020-01-09 [facility] [id number] [facility] 14:00:00 14:00:00 [facility] Results This patient has no known results.
[2023-03-30 18:21] LABS: Absolute Lymphocytes (CBC) 1.1 K/uL (0.7-4.9); Hematocrit 38.9 % (36.0-45.0); Lymphocytes % 7.4 % (15.3-44.8); MCV 80.7 fL (80-100); MPV 10.7 fL (7.6-11.3); Platelets 201 thou/uL (152-406); RBC Red Blood Cell Count 4.82 M/uL (3.86-4.86)
[2023-03-30] MEDS ORDERED: ONDANSETRON 4 MG/2 ML VIAL ONE (18:27)
[2023-03-30 18:35] LABS: SARS-CoV-2 Antigen Rapid Res Negative (Negative)
[2023-03-30 18:52] LABS: Albumin 3.5 g/dL (3.4-5.0); Bilirubin Total 0.6 mg/dL (0.2-1.0); Magnesium 2.4 mg/dL (1.6-2.4); Potassium 5.9 mEq/L (3.5-5.1); Protein, Total 7.7 g/dL (6.4-8.2)
--- NOTE | 2023-03-30 19:06 | EDPHYS ---
Physician Documentation [facility] Name: Ana Laura Davis Age: 67 yrs Sex: Female : 1955 Arrival Date: 03/30/2023 Time: 16:37 Bed 14 Private MD: Donald Escobar B ED Physician Abdiel Eden HPI: 03/30 18:07 This 67 yrs old Black Female presents to ER via Wheelchair with complaints of sb4 Nausea/Vomiting, Abdominal Pain, Fatigue. 18:07 67-year-old female with past medical history of hypertension, hyperlipidemia, sb4 insulin-dependent type 2 diabetes comes in complaining of fatigue and nausea x3 weeks. She states that she was seen here 3 weeks ago for poison chloe that was all over her body. She was prescribed a 5-day course of prednisone, Benadryl, and Pepcid. She states that she started feeling poorly after ending those medications. She denies any abdominal pain, vomiting, diarrhea, upper respiratory symptoms, fever, sick contacts. Historical: - Allergies: 16:53 Latex, Natural Rubber; me1 - PMHx: 16:53 Diabetes - IDDM; High Cholesterol; Hypertension; me1 - PSHx: 16:53 None; me1 - Immunization history:: Adult Immunizations up to date. - Social history:: Smoking status: Patient denies any tobacco usage or history of. ROS: 18:07 Eyes: Negative for injury, pain, redness, and discharge, ENT: Negative for injury, sb4 pain, and discharge, Cardiovascular: Negative for chest pain, palpitations, and edema, Respiratory: Negative for shortness of breath, cough, wheezing, and pleuritic chest pain, MS/Extremity: Negative for injury and deformity, Skin: Negative for injury, rash, and discoloration, Neuro: Negative for headache, weakness, numbness, tingling, and seizure. 18:07 Constitutional: Positive for fatigue, Negative for body aches, chills, fever. 18:07 Abdomen/GI: Positive for nausea, Negative for abdominal pain, vomiting, diarrhea. 18:07 All other systems are negative. Exam: 18:07 Constitutional: This is a well developed, well nourished patient who is awake, alert, sb4 and in no acute distress. Head/Face: Normocephalic, atraumatic. Eyes: Extra-ocular motions intact. Periorbital areas with no swelling, redness, or edema. ENT: Mucous membranes moist. Cardiovascular: Regular rate and rhythm with a normal S1 and S2. Respiratory: Lungs have equal breath sounds bilaterally, clear to auscultation and percussion. No rales, rhonchi or wheezes noted. No increased work of breathing, no retractions or nasal flaring. Abdomen/GI: Soft, non-tender, no distension. Skin: Warm, dry with normal turgor. Normal color with no rashes, no lesions, and no evidence of cellulitis. Vital Signs: 16:53 BP 127 / 54; Pulse 96; Resp 17; Temp 97.5; Pulse Ox 100% ; Weight 81.65 kg; Height 5 me1 ft. 1 in. ; 18:13 Pulse 105; Resp 17; Pulse Ox 98% ; nj1 20:11 BP 111 / 51; Pulse 100; Resp 18; Pulse Ox 99% on R/A; nj1 21:30 BP 113 / 59; Pulse 102; Resp 18 S; Pulse Ox 97% on R/A; ha1 22:30 BP 114 / 53; Pulse 102; Resp 19 S; Pulse Ox 96% on R/A; ha1 16:53 Body Mass Index 34.01 (81.65 kg, 154.94 cm) me1 MDM: 16:49 Patient medically screened. sb4 18:07 Differential diagnosis: Nonspecific abd pain, gastroenteritis, hyperglycemia, sb4 hypoglycemia, DKA, mono, covid, anemia, malignancy. 19:04 Data reviewed: vital signs, nurses notes, lab test result(s), and as a result, I will sb4 admit patient. Consideration of Admission/Observation Patient was admitted/placed on observation. Management of patient was discussed with the following: Hospitalist: MARGOTH Bell. Care significantly affected by the following chronic conditions: Diabetes. Counseling: I had a detailed discussion with the patient and/or guardian regarding: the historical points, exam findings, and any diagnostic results supporting the discharge/admit diagnosis, lab results, the need for further work-up and treatment in the hospital. 03/30 17:00 Order name: CBC with Diff; Complete Time: 18:28 sb4 03/30 17:00 Order name: CMP; Complete Time: 18:58 sb4 03/30 17:00 Order name: Magnesium; Complete Time: 18:58 sb4 03/30 17:00 Order name: SARS RAPID; Complete Time: 18:35 sb4 03/30 17:00 Order name: Flu; Complete Time: 18:55 sb4 03/30 17:00 Order name: Cobb Screen Profile; Complete Time: 18:53 sb4 03/30 19:39 Order name: UAM la1 03/30 22:06 Order name: Glucose, Ancillary Testing EDMS 03/30 22:11 Order name: Glucose ha1 03/30 22:39 Order name: Glucose Level EDMS 03/30 22:42 Order name: Glucose, Ancillary Testing EDMS Administered Medications: 18:22 Drug: Ondansetron IVP 4 mg Route: IVP; Site: right forearm; nj1 19:01 Follow up: Response: No adverse reaction nj1 19:30 Drug: NS 0.9% IV 1000 ml Route: IV; Rate: 2 bolus; Site: right forearm; nj1 20:08 Drug: Insulin Drip - (Insulin Regular Human IVP 100 units, NS 0.9% IV 100 ml) nj1 {Co-Signature: ha1 (Dolores Elias RN).} Route: IV; Rate: calculated rate; Site: right forearm; 21:10 Drug: Insulin Regular Human IVP 8 units {Co-Signature: iw (Ana María Jama RN).} Route: ha1 IVP; Site: left femoral; 21:17 Drug: NS IV 0.45 % 1000 ml Route: IV; Rate: 150 ml/hr; Site: right forearm; ha1 Disposition Summary: 03/30/23 19:06 Hospitalization Ordered Hospitalization Status: Inpatient Admission sb4 Provider: Duane Ferrara sb4 Location: Intensive Care Unit sb4 Condition: Serious sb4 Problem: new sb4 Symptoms: are unchanged sb4 Bed/Room Type: Standard sb4 Room Assignment: 6-(03/30/23 20:50) cg Diagnosis - Diabetes mellitus due to underlying condition with ketoacidosis without coma sb4 - acute renal failure sb4 - Hyperkalemia sb4 Forms: - Medication Reconciliation Form sb4 - SBAR form sb4 Signatures: Dispatcher [employer] EDMS Ray Medina, DIRECTOR QUALITY ASSURANCE-C DIRECTOR QUALITY ASSURANCE-Cla1 Sharee Ramos, RN Dolores Connolly RN RN ha1 Gypsy Valenzuela, PA-C PA-C sb4 Senia Osorio RN RN sukhi1 Cecilia Thomas RN RN pa1 Dolores Elias RN1 Ana María Jama RN Corrections: (The following items were deleted from the chart) 20:50 19:06 4
--- NOTE | 2023-03-30 19:06 | ER ---
Nurse's Notes [facility] Name: Ana Laura Davis Age: 67 yrs Sex: Female : 1955 Arrival Date: 03/30/2023 Time: 16:37 Bed 14 Private MD: Donald Escobar B Diagnosis: Diabetes mellitus due to underlying condition with ketoacidosis without coma;acute renal failure;Hyperkalemia Presentation: 03/30 16:51 Chief complaint: Patient states: n/v fatigue, decreased appetite for past 3 weeks. me1 Coronavirus screen: Vaccine status: Patient reports receiving the 2nd dose of the covid vaccine. At this time, the client does not indicate any symptoms associated with coronavirus-19. Ebola Screen: No symptoms or risks identified at this time. Initial Sepsis Screen: Does the patient meet any 2 criteria? No. Patient's initial sepsis screen is negative. Does the patient have a suspected source of infection? No. Patient's initial sepsis screen is negative. Risk Assessment: Do you want to hurt yourself or someone else? Patient reports no desire to harm self or others. Onset of symptoms is unknown. 16:51 Method Of Arrival: [place] [facility] [place] Acuity: [place] 4 me1 Triage Assessment: 16:53 General: Appears uncomfortable, well groomed, well developed, well nourished, Behavior me1 is cooperative, appropriate for age, flat. Pain: Denies pain. Neuro: Level of Consciousness is awake, alert, obeys commands, Oriented to person, place, time, situation, Appropriate for age. Cardiovascular: Capillary refill < 3 seconds Patient's skin is warm and dry. Respiratory: Respiratory effort is even, unlabored, Respiratory pattern is regular, symmetrical. GI: Reports anorexia, nausea, Patient currently denies constipation, diarrhea, vomiting. Historical: - Allergies: 16:53 Latex, Natural Rubber; me1 - PMHx: 16:53 Diabetes - IDDM; High Cholesterol; Hypertension; me1 - PSHx: 16:53 None; me1 - Immunization history:: Adult Immunizations up to date. - Social history:: Smoking status: Patient denies any tobacco usage or history of. Screenin:15 [facility] ED Fall Risk Assessment (Adult) History of falling in the last 3 months, nj1 including since admission No falls in past 3 months (0 pts) Score/Fall Risk Level 0 - 2 = Low Risk Oriented to surroundings, Maintained a safe environment, Hourly rounding (assess needs \\T\\ fall precautionary measures) done. Abuse screen: Denies threats or abuse. Denies injuries from another. Nutritional screening: No deficits noted. Tuberculosis screening: No symptoms or risk factors identified. Assessment: 17:30 Reassessment: See triage assessment. ruthann 20:14 Reassessment: Patient appears in no apparent distress at this time. Patient and/or nj1 family updated on plan of care and expected duration. Pain level reassessed. Patient is alert, oriented x 3, equal unlabored respirations, skin warm/dry/pink. 20:57 Reassessment: Unsuccessful attempt to call report at this time. Nurse unavailable, ruthann needs to transition care of one of her patients before she can get report on this one. Charge nurse notified. 21:30 Reassessment: Patient and/or family updated on plan of care and expected duration. Pain ha1 level reassessed. Patient is alert, oriented x 3, equal unlabored respirations, skin warm/dry/pink. Patient denies pain at this time. General: Appears comfortable, Behavior is calm, cooperative. Neuro: Level of Consciousness is awake, alert, obeys commands, Oriented to person, place, time, situation. Respiratory: Airway is patent Respiratory effort is even, unlabored, Respiratory pattern is regular, symmetrical. GI: Abdomen is round non-distended, Bowel sounds present X 4 quads. Patient currently denies nausea. Derm: Skin is normal. Musculoskeletal: Circulation, motion, and sensation intact. Range of motion: intact in all extremities. 22:30 Reassessment: Patient and/or family updated on plan of care and expected duration. Pain ha1 level reassessed. Patient is alert, oriented x 3, equal unlabored respirations, skin warm/dry/pink. Patient denies pain at this time. 23:10 Reassessment: Patient and/or family updated on plan of care and expected duration. Pain ha1 level reassessed. Patient is alert, oriented x 3, equal unlabored respirations, skin warm/dry/pink. 23:40 Reassessment: delayed on transferred to ICU was due to nurse in ICU having three ha1 patient and was waiting to move one patient to medical surgical. Alessia states " I am waiting on the med surge nurse to receive her patient so I can receive this new patient.". Vital Signs: 16:53 BP 127 / 54; Pulse 96; Resp 17; Temp 97.5; Pulse Ox 100% ; Weight 81.65 kg; Height 5 me1 ft. 1 in. ; 18:13 Pulse 105; Resp 17; Pulse Ox 98% ; nj1 20:11 BP 111 / 51; Pulse 100; Resp 18; Pulse Ox 99% on R/A; nj1 21:30 BP 113 / 59; Pulse 102; Resp 18 S; Pulse Ox 97% on R/A; ha1 22:30 BP 114 / 53; Pulse 102; Resp 19 S; Pulse Ox 96% on R/A; ha1 16:53 Body Mass Index 34.01 (81.65 kg, 154.94 cm) nj1 ED Course: 16:41 Patient arrived in ED. mr 16:41 Donald Escobar MD is Private Physician. mr 16:49 Gy[facility] Valenzuel[facility]C [facility]. sb4 16:49 Abdiel Eden MD is Attending Physician. sb4 16:52 Triage completed. me1 16:53 Arm band placed on Patient placed. me1 17:13 Patient placed in an exam room, on a stretcher. 1 17:30 Provided Education on: fall precautions, call light. nj1 17:30 Patient has correct armband on for positive identification. Bed in low position. Call nj1 light in reach. Side rails up X 1. Adult w/ patient. 18:05 Initial lab(s) drawn, by nj, sent to lab. Inserted saline lock: 22 gauge in right em1 forearm, using aseptic technique. Blood collected. 18:12 Senia Osorio, RN is Primary Nurse. nj1 19:04 Duane Ferrara MD is Hospitalizing Provider. sb4 21:05 Report received from Senia. ha1 23:10 No provider procedures requiring assistance completed. ha1 23:10 Patient admitted, IV remains in place. ha1 Administered Medications: 18:22 Drug: Ondansetron IVP 4 mg Route: IVP; Site: right forearm; nj1 19:01 Follow up: Response: No adverse reaction nj1 19:30 Drug: NS 0.9% IV 1000 ml Route: IV; Rate: 2 bolus; Site: right forearm; nj1 20:08 Drug: Insulin Drip - (Insulin Regular Human IVP 100 units, NS 0.9% IV 100 ml) nj1 {Co-Signature: [email or web address] (Dolores Elias RN).} Route: IV; Rate: calculated rate; Site: right forearm; 21:10 Drug: Insulin Regular Human IVP 8 units {Co-Signature: iw (Ana María Jama RN).} Route: ha1 IVP; Site: left femoral; 21:17 Drug: NS IV 0.45 % 1000 ml Route: IV; Rate: 150 ml/hr; Site: right forearm; ha1 Medication: 23:11 VIS not applicable for this client. ha1 Outcome: 19:06 Decision to Hospitalize by Provider. sb4 23:10 Admitted to ICU accompanied by nurse, via stretcher, room 6, with chart, Report called ha1 to JULIUS Aggarwal 23:10 Condition: stable 23:10 Discharge instructions given to patient, family, Instructed on the need for admit, Demonstrated understanding of instructions. 23:11 Patient left the ED. ha1 Signatures: Angela Lawrence mr Brown, Harinder em1 Raffaele Evans, RN RN 1 Laurie Hart RN RN 1 Dolores Elias, JULIUS RN ha1 Gypsy Valenzuela PA-C PAHernandez sb4 Senia Osorio, RN RN nj1 Cecilia Thomas, RN RN nj1 Dolores Elias RN 1 Ana María Jama RN Corrections: (The following items were deleted from the chart) 23:54 23:40 Patient left the ED. vc1 ha1 23:57 23:10 Reassessment: delayed on transferred to ICU was due to nurse in ICU having three ha1 patient and was waiting to move one patient to medical surgical. ha1
[2023-03-30] MEDS ORDERED: NA CHLORIDE 0.9% 500 ML ONE (19:08)
[2023-03-30] MEDS ORDERED: NA CHLORIDE 0.9% 2,000 ML ONE (19:13)
--- NOTE | 2023-03-30 19:42 | P.HP ---
Certification for Inpatient Patient admitted to: Inpatient With expected LOS: >2 Midnights Patient will require the following post-hospital care: None Practitioner: I am a practitioner with admitting privileges, knowledge of patient current condition, hospital course, and medical plan of care. Services: Services provided to patient in accordance with Admission requirements found in Title 42 Section 412.3 of the Code of Federal Regulations Patient History Date of Service: 03/30/23 Reason for admission: DKA, acute renal failure History of Present Illness: 67-year-old female with history of insulin-dependent diabetes, hypertension, hyperlipidemia presents emergency department chief complaint of fatigue, nausea, vomiting. She was seen here on 03/12/2023 and prescribed prednisone 40 mg daily for 5 days which she completed. She reports since taking the steroids her blood sugars have been elevated between 200s and 500s. She takes Basaglar 18 units twice daily at home as well as NovoLog 10 units 3 times a day. She was evaluated in the emergency department, labs were significant for acute renal failure hyperkalemia, DKA. She was started on IV fluids and insulin drip will need to be admitted to ICU, no recent abx or nsaids. Allergies latex Allergy (Intermediate, Verified 01/16/13 12:38) unknown Home Medications: Pravastatin Sodium [Pravachol] 40 mg PO DAILY 01/14/13 Benzonatate [Tessalon Perle*] 200 mg PO TID PRN #90 cap 10/13/20 Famotidine [Pepcid*] 20 mg PO DAILY #30 tab 10/13/20 Apixaban [Eliquis] 5 mg PO SEECOM #75 tablet 10/20/20 Ascorbic Acid [Vitamin C with Shanna Hips] 500 mg PO TID #90 tab.chew 10/20/20 Cholecalciferol (Vitamin D3) [Vitamin D3] 2,000 unit PO DAILY #30 capsule 10/20/20 Insulin Regular, Human [Novolin R] See Protocol SQ ACHS #1 vial 10/20/20 Thiamine HCl [Vitamin B-1*] 100 mg PO BID #60 tablet 10/20/20 Zinc Sulfate [Zinc Sulfate*] 220 mg PO DAILY #30 cap 10/20/20 levoFLOXacin [Levaquin*] 750 mg PO DAILY #7 tab 10/20/20 Hydrocortisone [Cortef*] 10 mg PO BID #90 tab 10/22/20 Insulin Glargine,Hum.rec.anlog [Basaglar [place] U-100] 20 unit SQ DAILY #2 insuln.pen 10/22/20 - Past Medical/Surgical History Diabetic: Yes -: Hypertension, -: diabetes mellitus, -: hyperlipidemia -: none Psychosocial/ Personal History: 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 moist/pink, EOMI, Sclerae nonicteric Neck: Supple, 2+ carotid pulse no bruit, No LAD, Without JVD or thyroid abnormality Respiratory: Clear to auscultation bilaterally, Normal air movement Cardiovascular: Regular rate/rhythm, Normal S1 S2 Capillary refill: <2 Seconds Gastrointestinal: Normal bowel sounds, No tenderness Musculoskeletal: No tenderness Integumentary: No rashes Neurological: Normal speech, Normal strength at 5/5 x4 extr, Normal tone, Normal affect - Studies Laboratory Data (last 24 hrs) 03/30/23 03/30/23 18:00 18:00 WBC 14.40 H Hgb 12.1 Hct 38.9 Plt Count 201 Sodium 126 L Potassium 5.9 H BUN 79 H Creatinine 3.92 H Glucose 831 H* Magnesium 2.4 Total Bilirubin 0.6 AST 11 L ALT 27 Alkaline Phosphatase 85 Microbiology Data (last 24 hrs): 03/30/23 18:00 Nasopharnyx Influenza Type A Antigen Screen - Final 03/30/23 18:00 Nasopharnyx Influenza Type B Antigen Screen - Final Assessment and Plan - Plan Assessment: Diabetes mellitus type 2insulin-dependent with ketoacidosis Acute renal failure with hyperkalemia Hypertension Hyperlipidemia Plan: Diabetes mellitus type 2insulin-dependent with ketoacidosis Hourly Accu-Cheks, chemistry every 4 hours, insulin drip, IV fluids. A1c ord ered, blood sugars significantly elevated after receiving p.o. steroids approximate 3 weeks ago. Patient takes Basaglar 18 units twice daily and NovoLog 10 units 3 times a day at home. Will need dose adjustment. Acute renal failure with hyperkalemia Continue IV fluids, nephrology consult, renal ultrasound. Hypertension Hyperlipidemia Obtain home medications, restart as appropriate. DVT PPX: Heparin subcu Code status: Full Discharge Plan: Home Plan to discharge in: Greater than 2 days - Advance Directives Does patient have a Living Will: No Does patient have a Durable POA for Healthcare: No Critical Care: No Time Spent Managing Pts Care (In Minutes): 70
[2023-03-30] MEDS ORDERED: NA CHLORIDE 0.9% 100 ML ONE (19:54)
[2023-03-30] MEDS ORDERED: INSULIN -REGULAR HUMAN 50 UNIT/0.5 ML ML ONE ×2 (19:54→21:22)
[2023-03-30] MEDS ORDERED: NACHLORIDE 0.45% 1,000 ML IV ONE (21:33)
[2023-03-30] MEDS: D5 0.45 NS 1,000 ML IV SCH (21:59)
[2023-03-30] MEDS ORDERED: INSULIN -REGULAR HUMAN 100 UNIT in NA CHLORIDE 0.9% 100 ML IV SCH (21:59)
[2023-03-30] MEDS: HEPARIN 5000 UNIT/ML 1 ML VIAL SQ SCH (23:51)
[2023-03-31 00:08] VITALS: BMI 31.0
[2023-03-31 00:58] LABS: Potassium 3.7 mEq/L (3.5-5.1); Thyroid Stimulating Hormone 1.05 uIU/mL (0.358-3.740); Uric Acid 9.9 mg/dL (2.6-6.0)
[2023-03-31] MEDS: NACHLORIDE 0.45% 1,000 ML IV SCH ×2 (01:03→04:39)
[2023-03-31] MEDS: D5 0.45 NS 1,000 ML IV SCH (02:14)
[2023-03-31 04:33] LABS: Absolute Lymphocytes (CBC) 2.9 K/uL (0.7-4.9); Hematocrit 32.3 % (36.0-45.0); Lymphocytes % 20.4 % (15.3-44.8); MCV 77.4 fL (80-100); MPV 9.9 fL (7.6-11.3); Platelets 192 thou/uL (152-406); RBC Red Blood Cell Count 4.17 M/uL (3.86-4.86)
[2023-03-31 04:46] LABS: Potassium 3.8 mEq/L (3.5-5.1)
[2023-03-31 04:49] LABS: Magnesium 2.1 mg/dL (1.6-2.4)
[2023-03-31] MEDS ORDERED: GLUCAGON 1 MG/VIAL IM PRN (05:03)
[2023-03-31] MEDS ORDERED: D50W 25 GM/50 ML SYRINGE IV PRN (05:03)
[2023-03-31] MEDS ORDERED: D10W 125 ML IV PRN (05:09)
[2023-03-31] MEDS ORDERED: INSULIN GLARGINE 100 UNIT/ML SQ ONE (05:15)
[2023-03-31] MEDS ORDERED: NACHLORIDE 0.45% 1,000 ML IV SCH (06:00)
--- NOTE | 2023-03-31 06:47 | P.PN ---
Date of Service: 03/31/23 Subjective: feeling much better today denies any pain; no nausea / vomiting urinated without issue overnight strength improving insulin drip stopped overnight ROS: 10 point ROS as noted above, otherwise negative Physical Exam: GEN: Alert, oriented, NAD HEENT: Normal conjunctiva, sclera anicteric CV: Regular rate and rhythm, no edema Pulm: Nonlabored respirations on room air, clear bilaterally ABD: Soft, nontender, nondistended Integumentary: No rashes Neuro: Normal speech, normal affect vitals reviewed Problem List: IDDM2, complicated by DKA RANDY Hyperkalemia Hypertension Hyperlipidemia IDDM2, complicated by DKA Patient takes Basaglar 18 units twice daily and NovoLog 10 units 3 times a day at home. Will need dose adjustment. A1c: 11.9 anion gap now normal; off insulin drip and transitioned to SQ insulin this morning Cont IVF for now improving advance diet RANDY Hyperkalemia likely hypovolemia / DKA renal u/s (03/30): no hydronephrosis slight improvement cont IVF urine studies nephrology consulted Hypertension Hyperlipidemia confirm home medications, restart as appropriate. VTE: heparin sq Code: Full Dispo: Home, ~1-2 days anticipate downgrade from ICU in afternoon
--- NOTE | 2023-03-31 07:44 | RAD REPORT ---
EXAM DESCRIPTION: US - Renal Ultrasound-Complete - 03/31/2023 1:48 am CLINICAL HISTORY: Acute renal failure COMPARISON: 2020 FINDINGS: The right kidney measures 9 cm with a normal echotexture. The left kidney measures 9 cm with a normal echotexture. Several tiny bright echoes each kidney equivocal for nonobstructing calculi Hydronephrosis is not seen. No gross abnormality of bladder IMPRESSION: No hydronephrosis
[2023-03-31] MEDS: INSULIN -REGULAR HUMAN 50 UNIT/0.5 ML ML SQ SCH ×4 (07:52→20:44)
[2023-03-31] MEDS: HEPARIN 5000 UNIT/ML 1 ML VIAL SQ SCH ×2 (07:52→20:36)
[2023-03-31] MEDS ORDERED: INSULIN GLARGINE 100 UNIT/ML SQ SCH ×2 (09:00→21:00)
[2023-03-31 15:26] LABS: Potassium 3.8 mEq/L (3.5-5.1)
[2023-03-31] MEDS: ONDANSETRON 4 MG/2 ML VIAL IV PRN ×2 (15:42→23:50)
[2023-03-31] MEDS ORDERED: NA CHLORIDE 0.9% 500 ML IV ONE (15:46)
--- NOTE | 2023-03-31 16:15 | CON ---
Date of Consultation: 03/31/2023 Reason For Consultation: Acidosis, elevation in BUN and creatinine. History Of Present Illness: This is a pleasant 67-year-old female with significant past medical hist ory of type 1 diabetes insulin dependent, no neuropathy, no retinopathy, hyperlipidemia, hypertension , the patient was admitted to the hospital with DKA secondary to uncontrolled diabetes secondary to s teroid use, found to have elevation in BUN and creatinine. For that reason, we have been consulted. The patient denied taking any nonsteroidal. No recent exposure to IV contrast. Over the night, the patient was started on aggressive hydration. Reviewing the record for the patient upon previous vis it, no elevation in BUN and creatinine. Creatinine 1.1 as of May 2021. Upon arrival to the hosp ital, creatinine was 3.9, currently down to 2.7. GFR of 12, currently up to 25. Past Medical History: Includes; 1.Diabetes, no retinopathy, no neuropathy. 2.Hypertension. 3.Hyperlipidemia. Allergies: TO LATEX. Home Medications: Include; 1.Pravastatin. 2.Pepcid. 3.Eliquis. 4.Vitamin C. 5.Insulin. 6.Zinc sulfate. 7.Hydrocortisone. Past Surgical History: None. Family History: Positive for diabetes and hypertension. Social History: Denied smoking, denied drinking, denied drugs abuse. Review of Systems: Head and Neck: No red eye. No ear pain. GI: Has nausea, vomiting. : Has polyuria. 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 Respiratory: No shortness of breath. Cardiovascular: No chest pain. Endocrine: No polydipsia. Skin: No rash. Physical Examination: General: When I saw the patient; the patient lying in bed, comfortable, not on any distress. Vital Signs: Blood pressure 106/53, pulse of 92, afebrile. The patient had good urine output of 140 0 in the last 24 hours. Chest: Clear to auscultation. Heart: S1, S2. Regular. Abdomen: Soft, nontender. Extremity: No edema. Neurologic: Alert, oriented x3. No focal. Laboratory Data: When admitted to the hospital; sodium 126, potassium 5.9, bicarb 14, BUN 79, creati nine 3.9, GFR of 12. Blood sugar 800, corrected sodium is 132. Current lab data; sodium 137, potass ium 3.8, bicarb 24, BUN 47, creatinine 2, GFR 25, calcium 8.4. WBC 14.1, H and H 10.6/32.3, platelet of 192. Urinalysis negative for infection. Renal ultrasound; 9/9 cm, no hydronephrosis. Assessment And Plan: 1.Acute kidney injury secondary to prerenal, small size kidney, non-proteinuric, mostly secondary to glucose diuresis, on the recovery phase, looked to me still on the dry side. I am going to go ahead and bolus the patient with another 500 and change IV fluid to normal saline to be isotonic and we wi ll follow up the patient. The patient is going to be a good candidate as outpatient to start on SINDHU inhibitor or ARB given the long-standing diabetes. 2.Hypertension, controlled, optimal. Continue to monitor. As I mentioned, the patient as outpatien t is going to need SINDHU inhibitor or ARB. 3.Hyponatremia, corrected, secondary to depletional and pseudohyponatremia secondary to hyperglycemi a, currently corrected. We will change IV fluid to normal saline. 4.Hypokalemia. I will supplement. 5.Acidosis secondary to renal failure and diabetic ketoacidosis, on the recovery of insulin drip. W e will follow up with primary. No need for bicarb. Thank you, Dr. Ferrara for allowing us to participate in the care of your patient. Time spent examining the patient [id number], reviewing data, lab and radiology, placing order, disc ussing the case with the patient, discussing the case with the steamboat captain including nursing staff an d ICU and hospitalist more than 75 minutes. DILIP Voice ID: [id number] Report ID: [id number]
[2023-03-31] MEDS ORDERED: KCL 20 MEQ/100 mL IVPB 20 MEQ/100 ML BAG IV SCH (16:30)
[2023-03-31] MEDS: NA CHLORIDE 0.9% 1,000 ML IV SCH ×2 (16:31→23:31)
[2023-03-31 17:22] LABS: Specific Gravity 1.012 (1.005-1.030); Urine Bacteria <20 /HPF (<20); Urine Bilirubin NEGATIVE (Negative); Urine Blood Negative (Negative); Urine Clarity Clear (Clear); Urine Color Colorless (Yellow); Urine Glucose 4+ (Over) (Negative); Urine Protein NEGATIVE (Negative); Urine RBC <5 /HPF (None Seen); Urine Urobilinogen Normal (Normal)
[2023-04-01 03:54] LABS: Absolute Lymphocytes (CBC) 3.1 K/uL (0.7-4.9); Hematocrit 31.8 % (36.0-45.0); Lymphocytes % 32.9 % (15.3-44.8); MPV 9.6 fL (7.6-11.3); Platelets 183 thou/uL (152-406); RBC Red Blood Cell Count 4.07 M/uL (3.86-4.86)
[2023-04-01 04:08] LABS: Magnesium 1.7 mg/dL (1.6-2.4); Potassium 4.1 mEq/L (3.5-5.1)
--- NOTE | 2023-04-01 06:44 | P.PN ---
Date of Service: 04/01/23 Subjective: feeling better today, urinating without issue; +ambulating to bathroom without issue reports having zero taste for ~1 week, can smell fine; similar to when she had covid no n/v/d ROS: 10 point ROS as noted above, otherwise negative Physical Exam: GEN: Alert, oriented, NAD HEENT: Normal conjunctiva, sclera anicteric CV: Regular rate and rhythm, trace pedal edema Pulm: Nonlabored respirations on room air, clear bilaterally ABD: Soft, nontender, nondistended Integumentary: No rashes, no lesions Neuro: Normal speech, normal affect vitals reviewed Problem List: IDDM2, complicated by DKA RANDY, pre-renal Hyperkalemia Hypertension Hyperlipidemia IDDM2, complicated by DKA Patient takes Basaglar 18 units twice daily and NovoLog 10 units 3 times a day at home. Will need dose adjustment on discahrge A1c: 11.9 anion gap now normal; off insulin drip and transitioned to SQ insulin Cont IVF for now - decrease to 50ml/hr improving semglee increased, will adjust further as patient's appetite improves / glc levels RANDY, pre-renal Hyperkalemia seems pre-renal; likely hypovolemia / DKA renal u/s (03/30): no hydronephrosis UA: LE 500, 4+ glucose, 1+ ketones, +WBC, bacteria <20 slight improvement nephrology consulted - IVF Cr improving Hypertension Hyperlipidemia confirm home medications, restart as appropriate. VTE: heparin sq Code: Full Dispo: Home, ~1 day pending further improvement, renal function; diet; glc/insulin
[2023-04-01] MEDS: NA CHLORIDE 0.9% 1,000 ML IV SCH ×3 (09:03→13:26)
[2023-04-01] MEDS: INSULIN GLARGINE 100 UNIT/ML SQ SCH ×2 (09:04→22:05)
[2023-04-01] MEDS: INSULIN -REGULAR HUMAN 50 UNIT/0.5 ML ML SQ SCH ×4 (09:05→21:00)
[2023-04-01] MEDS: HEPARIN 5000 UNIT/ML 1 ML VIAL SQ SCH ×2 (09:05→22:05)
[2023-04-01 09:20] VITALS: O2SAT 95
--- NOTE | 2023-04-01 10:29 | P.PN ---
Subjective Date of Service: 04/01/23 Chief Complaint: DKA, acute renal failure Subjective: Other (No urinary complaints.) Physical Examination - Vital Signs Temperature: 98.1 F Blood Pressure: 113/53 Pulse: 86 Respirations: 14 Pulse Ox (%): 95 - Physical Exam General: Other (appears as her stated age) HEENT: Atraumatic, Normocephalic Neck: Supple, JVD not distended Respiratory: Other (symmetric chest expansion) Cardiovascular: No rubs, No murmurs Gastrointestinal: Soft and benign, No rebound Musculoskeletal: No clubbing Integumentary: No warmth Neurological: Normal tone Urinary: Other (no bladder distention) External genitalia: Deferred Rectal: Deferred Assessment And Plan - Plan 1. Acute kidney injury secondary to prerenal, small size kidney, non-prote inuric, mostly secondary to glucose diuresis. Improving. Cont isotonic IVF. [place] po flud intake. 2. DKA. IVF + insulin. 3. Hypertension. continue current medication regimen. 4. Hyperkalemia. Resolved. Hydration as above. 5. Acidosis secondary to renal failure and diabetic ketoacidosis. Improved. Cont IVF + insulin as above.
[2023-04-02] MEDS: NA CHLORIDE 0.9% 1,000 ML IV SCH (01:31)
[2023-04-02 03:36] LABS: Magnesium 1.7 mg/dL (1.6-2.4); Potassium 3.9 mEq/L (3.5-5.1)
--- NOTE | 2023-04-02 06:49 | P.PN ---
Date of Service: 04/02/23 Subjective: ROS: 10 point ROS as noted above, otherwise negative Physical Exam: GEN: Alert, oriented, NAD HEENT: Normal conjunctiva, sclera anicteric CV: Regular rate and rhythm, trace pedal edema Pulm: Nonlabored respirations on room air, clear bilaterally ABD: Soft, nontender, nondistended Integumentary: No rashes, no lesions Neuro: Normal speech, normal affect vitals reviewed Problem List: IDDM2, complicated by DKA RANDY, pre-renal Hyperkalemia Hypertension Hyperlipidemia IDDM2, complicated by DKA Patient takes Basaglar 18 units twice daily and NovoLog 10 units 3 times a day at home. Will need dose adjustment on discahrge A1c: 11.9 anion gap now normal; off insulin drip and transitioned to SQ insulin Cont IVF for now - decrease to 50ml/hr improving semglee increased, will adjust further as patient's appetite improves / glc levels RANDY, pre-renal Hyperkalemia seems pre-renal; likely hypovolemia / DKA renal u/s (03/30): no hydronephrosis UA: LE 500, 4+ glucose, 1+ ketones, +WBC, bacteria <20 slight improvement nephrology consulted - IVF Cr improving Hypertension Hyperlipidemia confirm home medications, restart as appropriate. VTE: heparin sq Code: Full Dispo: Home, ~1 day pending further improvement, renal function; diet; glc/insulin
[2023-04-02] MEDS: INSULIN -REGULAR HUMAN 50 UNIT/0.5 ML ML SQ SCH (07:30)
--- NOTE | 2023-04-02 08:16 | P.DS ---
Admission Date: 03/30/23 Discharge Date: 04/02/23 Disposition: ROUTINE DISCHARGE Discharge Condition: GOOD Reason for Admission: DKA, acute renal failure Consultations: Nephrology - Dr. Chowdary Brief History of Present Illness: 67yo F, PMH: insulin-dependent diabetes, hypertension, hyperlipidemia Patient presents emergency department chief complaint of fatigue, nausea, vomiting. She was seen here on 03/12/2023 and prescribed prednisone 40 mg daily for 5 days which she completed. She reports since taking the steroids her blood sugars have been elevated between 200s and 500s. She takes Basaglar 18 units twice daily at home as well as NovoLog 10 units 3 times a day.She was evaluated in the emergency department, labs were significant for acute renal failure hyperkalemia, DKA. She was started on IV fluids and insulin drip will need to be admitted to ICU, no recent abx or nsaids. Hospital Course: Problem List: IDDM2, complicated by DKA RANDY, pre-renal Hyperkalemia Hypertension Hyperlipidemia Patient presented with fatigue, nausea, vomiting. She was found to be in diabetic ketoacidosis. A1c: 11.9, POC glucose: >500. Patient was admitted into the ICU for DKA. She was started on an insulin drip and given IV fluids and showed improvement of her symptoms. Insulin drip was switched to sq, patient was downgraded to the floor, and patient continued to improve. During her hospitalization Nephrology was consulted for RANDY, hyperkalemia and had improvement with IV fluids. Renal ultrasound was unremarkable. On day of discharge renal function was stable. RANDY likely secondary to her DKA / hypovolemia. Patient was feeling better, blood sugars stabilized, and was deemed stable for discharge. Recommend patient to start taking insulin at her normal dose. Check blood glucose levels 3-4 times a day. If still elevated after normal dose (~greater than 200), recommend to slowly increase long acting insulin by ~1-2 units until glucose levels stabilize. May need to adjust short acting as needed as well. Follow up with PCP/[employer] for further management and adjustments of insulin as needed. Continue other home medications as previously prescribed. change in medications: Patients blood pressure has been low-normal during her hospitalization. Hold off on taking amlodipine, doxazosin, olmesartan/HCTZ until blood pressure rises / consistently elevated. (>130s/140s systolic) Recommend restarting first on doxazosin and amlodipine due to recent RANDY. Hold off on taking olmesartan/HCTZ for ~3-5 days and restart if/when blood pressure remains >140 systolic. Follow up: PCP 3-5 days Nephrology within 1-2 weeks Endocrinology Physical Exam: GEN: Alert, oriented, NAD HEENT: Normal conjunctiva, sclera anicteric CV: Regular rate and rhythm, no edema Pulm: Nonlabored respirations on room air, clear bilaterally ABD: Soft, nontender, nondistended Integumentary: No rashes, no lesions Neuro: Normal speech, normal affect Vital Signs/Physical Exam: Temp Pulse Resp BP Pulse Ox 98.1 F 86 14 113/53 L 95 04/02/23 06:00 04/02/23 06:00 04/02/23 06:00 04/02/23 06:00 04/02/23 06:00 Laboratory Data at Discharge: WBC 9.50 thou/uL (4.3-10.9) 04/01/23 03:30 Hgb 10.5 g/dL (12.0-15.0) L 04/01/23 03:30 Hct 31.8 % (36.0-45.0) L 04/01/23 03:30 Plt Count 183 thou/uL (152-406) 04/01/23 03:30 Sodium 143 mEq/L (136-145) 04/02/23 02:54 Potassium 3.9 mEq/L (3.5-5.1) 04/02/23 02:54 BUN 26 mg/dL (7-18) H 04/02/23 02:54 Creatinine 1.34 mg/dL (0.55-1.02) H 04/02/23 02:54 Glucose 166 mg/dL (74-106) H 04/02/23 02:54 Uric Acid 9.9 mg/dL (2.6-6.0) H 03/31/23 00:19 Magnesium 1.7 mg/dL (1.6-2.4) 04/02/23 02:54 Total Bilirubin 0.6 mg/dL (0.2-1.0) 03/30/23 18:00 AST 11 U/L (15-37) L 03/30/23 18:00 ALT 27 U/L (13-56) 03/30/23 18:00 Alkaline Phosphatase 85 U/L (45-117) 03/30/23 18:00 Triglycerides 124 mg/dL (<150) 03/31/23 03:53 Cholesterol 163 mg/dL (<200) 03/31/23 03:53 HDL Cholesterol 51 mg/dL (40-60) 03/31/23 03:53 Cholesterol/HDL Ratio 3.20 03/31/23 03:53 Home Medications: Amlodipine 5 mg PO DAILY 03/31/23 Aspirin [Aspirin EC] 81 mg PO DAILY 03/31/23 Doxazosin [Cardura*] 2 mg PO BID 03/31/23 Insulin -Regular Human [Novolin -R*] 10 unit SQ TID 03/31/23 Insulin Glargine,Hum.rec.anlog [Basaglar Kwikpen U-100] 18 unit SQ BID 03/31/23 Olmesartan/Hydrochlorothiazide [Olmesartan-Hctz 40-12.5 mg Tab] 1 each PO DAILY 03/31/23 Pravastatin [Pravachol*] 40 mg PO DAILY 03/31/23 Triamcinolone 0.1% Crm [Kenalog 0.1% Cream*] 15 appl TOP DAILY 03/31/23 Physician Discharge Instructions: Patient presented with fatigue, nausea, vomiting. She was found to be in diabetic ketoacidosis. A1c: 11.9, POC glucose: >500. Patient was admitted into the ICU for DKA. She was started on an insulin drip and given IV fluids and showed improvement of her symptoms. Insulin drip was switched to sq, patient was downgraded to the floor, and patient continued to improve. During her hospitalization Nephrology was consulted for RANDY, hyperkalemia and had improvement with IV fluids. Renal ultrasound was unremarkable. On day of discharge renal function was stable. RANDY likely secondary to her DKA / hypovolemia. Patient was feeling better, blood sugars stabilized, and was deemed stable for discharge. Recommend patient to start taking insulin at her normal dose. Check blood glucose levels 3-4 times a day. If still elevated after normal dose (~greater than 200), recommend to slowly increase long acting insulin by ~1-2 units until glucose levels stabilize. May need to adjust short acting as needed as well. Follow up with PCP/[employer] Technician for further management and adjustments of insulin as needed. Continue other home medications as previously prescribed. change in medications: Patients blood pressure has been low-normal during her hospitalization. Hold off on taking amlodipine, doxazosin, olmesartan/HCTZ until blood pressure rises / consistently elevated. (>130s/140s systolic) Recommend restarting first on doxazosin and amlodipine due to recent RANDY. Hold off on taking olmesartan/HCTZ for ~3-5 days and restart if/when blood pressure remains >140 systolic. Follow up: PCP 3-5 days Nephrology within 1-2 weeks Endocrinology Followup: Donald Escobar MD [Primary Care Provider] - Time spent managing pt's care (in minutes): 45
[2023-04-02 08:41] VITALS: BP 119/69; TEMP 98.6
[2023-04-02] MEDS: INSULIN GLARGINE 100 UNIT/ML SQ SCH (08:45)
[2023-04-02] MEDS: HEPARIN 5000 UNIT/ML 1 ML VIAL SQ SCH (09:00)
--- NOTE | 2023-04-04 13:18 | EKG ---
Test Date: 2023-03-31 Test Time: 09:52:04 Sidehand: GRIS MEASUREMENT RESULTS: Intervals: Rate: 90 OR: 144 QRSD: 88 QT: 382 QTc: 467 [place]: P: 62 OR: 144 QRS: 15 T: 24 INTERPRETIVE STATEMENTS: Sinus rhythm with marked sinus arrhythmia Otherwise normal ECG Compared to ECG 10/16/2020 17:31:59 Sinus tachycardia no longer present Electronically Signed On 04-04-23 13:11:33 CDT by Sang Hidalgo
== END 2023-04-02 10:48 | disposition home or self-care (01) | DRG 682 ==
LOC: ER 16:37 → ERHOLD 19:25 → 3RD-ICU 21:02 → 2ND 03-31 23:08
PROVIDERS: ADMIT Hospitalist; ATTEND Hospitalist
DX: N17.9 Acute kidney failure, unspecified (principal); E11.10 Type 2 diabetes mellitus with ketoacidosis without coma; E87.1 Hypo-osmolality and hyponatremia; I10 Essential (primary) hypertension; E87.5 Hyperkalemia; E87.6 Hypokalemia; E78.5 Hyperlipidemia, unspecified; T38.0X5A Adverse effect of glucocorticoids and synthetic analogues, initial encounter; Z79.4 Long term (current) use of insulin; Z91.09 Other allergy status, other than to drugs and biological substances; Z91.040 Latex allergy status; Z20.822 Contact with and (suspected) exposure to COVID-19; Z79.01 Long term (current) use of anticoagulants; Z79.899 Other long term (current) drug therapy
CPT/HCPCS: 36415; 76770; 80048; 80053; 80061; 81001; 82550; 82947; 83036; 83735; 84439; 84443; 84550; 85025; 86308; 87086; 87088; 87804; 87811; 93005; 99285; J1644; J1815; J2405; J3480; J7030; J7040; J7799